=== PATIENT | male | born 1955 | race Caucasian/White ===

== ENCOUNTER 2016-11-22 10:20 | Inpatient (IN) | payer OTHER ==
[~2016-11-22] VITALS: Ht 172.7 cm; Wt 88.7 kg
[~2016-11-22 10:20] MED LIST: ASPI81TA21 PO; LPT/40 PO; LSNUNK PO
[2016-11-22] MEDS ORDERED: ONDANSETRON INJ 2 MG/ML 2 ML VIAL IV STA (11:06)
[2016-11-22 11:31] LABS: BASO % 0.2 %; BASO ABS # 0.02 K/uL (0-0.2); COMPLETE YES; EOS % 1.2 %; HEMATOCRIT 46.3 % (42-52); IG% 0.2 %; LYMPH % 16.9 %; LYMPH ABS # 1.57 K/uL (1.2-3.4); MEAN CELL VOLUME 92.2 fL (80-100); MEAN CORPUSCULAR HEMOGLOBIN 31.1 pg (25-34); MEAN CORPUSCULAR HGB CONC 33.7 g/dl (32-36); MEAN PLATELET VOLUME 11.1 fL (7.4-10.4); MONO % 7.3 %; NEUT % 74.2 %; PLATELET COUNT 211 K/uL (130-400); RED BLOOD COUNT 5.02 M/uL (4.7-6.1); WHITE BLOOD COUNT 9.31 K/uL (4.8-10.8)
[2016-11-22] MEDS ORDERED: MoRPHine SULFATE 4 MG/ML 1 ML CARP\\VIAL IV STA ×2 (11:46→13:14)
[2016-11-22] MEDS ORDERED: SODIUM CHLORIDE 0.9% 1000ML 1,000 ML IV STA (11:46)
[2016-11-22 11:54] LABS: ALKALINE PHOSPHATASE 69 U/L (45-117); ALT/SGPT 36 U/L (12-78); BLOOD UREA NITROGEN 15 mg/dl (7-18); BUN/CREATININE RATIO 14.9 (10-20); CALCIUM 8.8 mg/dl (8.5-10.1); CARBON DIOXIDE 25 mmol/L (21-32); CHLORIDE 110 mmol/L (98-107); GLUCOSE 100 mg/dl (70-99); SODIUM 140 mmol/L (136-145)
[2016-11-22] MEDS ORDERED: IBUP-1459 PO (12:12)
[2016-11-22 12:37] LABS: POTASSIUM 4.7 mmol/L (3.5-5.1)
--- NOTE | 2016-11-22 13:09 | DIAGNOSTIC IMAGING REPORT ---
ABDOMEN 2VIEW W/PA CHEST RTN CLINICAL HISTORY: abdominal cramping, history of bowel obstruction COMPARISON STUDY: 10/23/2013 FINDINGS: The heart is enlarged. There is no free intraperitoneal air. There is no focal pulmonary consolidation.] Supine views the abdomen reveal no abnormally dilated loops of large or small bowel. There are no transition zone to indicate bowel obstruction. IMPRESSION: No evidence of bowel obstruction. No evidence of free air. Electronically signed by: Sj Lopez M.D. 11/22/2016 1:07 PM Dictated Date/Time: 11/22/2016 1:06 PM
[2016-11-22] MEDS ORDERED: OPTIRAY 320 IV PRN (14:15)
--- NOTE | 2016-11-22 15:06 | DIAGNOSTIC IMAGING REPORT ---
ABDOMEN AND PELVIS CT WITH IV CONTRAST CT DOSE: 515.60 mGy.cm HISTORY: Generalized abdominal pain, nausea, hx bowel obstructions TECHNIQUE: Multiaxial CT images of the abdomen and pelvis were performed following the use of intravenous contrast. A dose lowering technique was utilized adhering to the principles of ALARA. COMPARISON STUDY: Abdomen and pelvis CT 10/22/2013. FINDINGS: Calcified granuloma within the base of the left lower lobe. Stable 3 mm nodule within the left lower lobe. 1.6 cm nodular opacity within the medial base of the right lower lobe. No pneumoperitoneum. No pneumatosis. No suspicious lytic or blastic osseous lesions. The heart is mildly enlarged. Trace perihepatic ascites. No hepatic or splenic masses. Stable 1 cm hypodense lesion within the splenic dome. This likely represents a small cyst. The adrenal glands and pancreas are unremarkable. Normal kidneys. No hydronephrosis. Normal gallbladder. No retroperitoneal or mesenteric lymphadenopathy. Tiny fat-containing umbilical hernia. Normal bladder. Small fat-containing right inguinal hernia. The colon is decompressed. The visualized appendix is normal. Multiple fluid-filled and mildly distended loops of mid to distal small bowel are again noted. These measure up to 3 cm in diameter. The transition point is seen within the right mid abdomen on image 178. This remains unchanged from the prior study. There is a focal 1 cm focus of enhancement within the small bowel wall at the transition point which is also unchanged. Therefore, this is consistent with a small bowel mass until further otherwise. IMPRESSION: 1. Small bowel obstruction with a transition point located at the mid ileum which is nearly identical to the prior examination. Again noted at the transition point is a 1 cm hyperenhancing focus within the small bowel. This is consistent with a small bowel mass until proven otherwise. Surgical consultation is recommended. 2. A 1.6 cm nodular opacity within the medial base of the right lower lobe. A 3-[address] follow-up is recommended to ensure stability/resolution and to the exclude the possibility of a low-grade primary bronchogenic malignancy. 3. Trace perihepatic ascites. Electronically signed by: Ab Alas M.D. 11/22/2016 3:04 PM Dictated Date/Time: 11/22/2016 2:46 PM
--- NOTE | 2016-11-22 15:34 | EMERGENCY ROOM VISIT NOTE ---
History First contact with patient: 11:28 Chief Complaint: ABDOMINAL PAIN Stated Complaint: STOMACH CRAMPS Nursing Triage Summary: triage note: pt reports generalized abd stomach cramping "it feels exactly the same when i had a blocked instetine." pt reports nausea. History of Present Illness The patient is a 61 year old male who presents to the Emergency Room with complaints of generalized abdominal cramping which started this morning. The patient states that when he woke up, he "did not feel well." Throughout the day , he has had worsening crampy abdominal pain as well as nausea. He has had no vomiting. He did have a small bowel movement this morning prior to the onset of these symptoms. He has not had a bowel movement since then. He has a history of small bowel obstructions and states this is very similar to previous. He states that the cause of these is unknown. He denies previous abdominal surgeries. He did have an NG tube after his first bowel obstruction, but states that his most recent bowel obstruction resolved with bowel rest. He denies fevers/chills, chest pain, shortness of breath or urinary symptoms. He has had nothing to eat or drink today. Review of Systems A complete 10 point review of systems was reviewed with the patient with pertinent positives and negatives as per history of present illness. All else were negative. Past Medical/Surgical History Medical Problems: (1) Benign hypertension Social History Smoking Status: Never Smoker Alcohol Use: occasionally Drug Use: none Marital Status: Housing Status: lives with family Occupation Status: employed Current/Historical Medications Scheduled Aspirin Enteric Coated (Ecotrin Or Generic), 81 MG PO QAM Atorvastatin (Lipitor), 80 MG PO QAM Lisinopril (Zestril Unknown Dose), 10 MG PO QAM Scheduled PRN Ibuprofen (Motrin), 400 MG PO Q6H PRN for Pain Physical Exam Vital Signs Date Time Temp Pulse Resp B/P (MAP) Pulse Ox O2 Delivery O2 Flow Rate FiO2 11/22/16 16:17 38 12 176/89 97 Room Air 11/22/16 15:11 49 18 159/88 98 Room Air 11/22/16 13:49 44 20 153/75 98 Room Air 11/22/16 13:39 39 11/22/16 12:23 40 18 162/94 98 Room Air 11/22/16 11:13 41 11/22/16 11:05 38 20 176/92 95 Room Air 11/22/16 10:33 36.4 45 18 189/81 99 Room Air Physical Exam VITALS: Vitals are noted on the nurse's note and reviewed by myself. Vital signs stable. GENERAL: This is a 61-year-old male, in no acute distress, nondiaphoretic, well- developed well-nourished. SKIN: Capillary refill less than 2 seconds. HEENT: Normocephalic. PERRLA. Mucous membranes moist. HEART: Regular rate and rhythm without murmurs gallops or rubs. LUNGS: Clear to auscultation bilaterally without wheezes, rales or rhonchi. ABDOMEN: Positive bowel sounds x 4. Soft, tenderness to palpation across the upper abdomen. No guarding or rebound tenderness. NEURO: Patient was alert and oriented to person place and time. Medical Decision & Procedures ER Provider Diagnostic Interpretation: ABDOMEN 2VIEW W/PA CHEST RTN FINDINGS: The heart is enlarged. There is no free intraperitoneal air. There is no focal pulmonary consolidation.] Supine views the abdomen reveal no abnormally dilated loops of large or small bowel. There are no transition zone to indicate bowel obstruction. IMPRESSION: No evidence of bowel obstruction. No evidence of free air. ABDOMEN AND PELVIS CT WITH IV CONTRAST FINDINGS: Calcified granuloma within the base of the left lower lobe. Stable 3 mm nodule within the left lower lobe. 1.6 cm nodular opacity within the medial base of the right lower lobe. No pneumoperitoneum. No pneumatosis. No suspicious lytic or blastic osseous lesions. The heart is mildly enlarged. Trace perihepatic ascites. No hepatic or splenic masses. Stable 1 cm hypodense lesion within the splenic dome. This likely represents a small cyst. The adrenal glands and pancreas are unremarkable. Normal kidneys. No hydronephrosis. Normal gallbladder. No retroperitoneal or mesenteric lymphadenopathy. Tiny fat-containing umbilical hernia. Normal bladder. Small fat-containing right inguinal hernia. The colon is decompressed. The visualized appendix is normal. Multiple fluid-filled and mildly distended loops of mid to distal small bowel are again noted. These measure up to 3 cm in diameter. The transition point is seen within the right mid abdomen on image 178. This remains unchanged from the prior study. There is a focal 1 cm focus of enhancement within the small bowel wall at the transition point which is also unchanged. Therefore, this is consistent with a small bowel mass until further otherwise. IMPRESSION: 1. Small bowel obstruction with a transition point located at the mid ileum which is nearly identical to the prior examination. Again noted at the transition point is a 1 cm hyperenhancing focus within the small bowel. This is consistent with a small bowel mass until proven otherwise. Surgical consultation is recommended. 2. A 1.6 cm nodular opacity within the medial base of the right lower lobe. A 3-[address] follow-up is recommended to ensure stability/resolution and to the exclude the possibility of a low-grade primary bronchogenic malignancy. 3. Trace perihepatic ascites. Laboratory Results 11/22/16 11:04 Red Blood Count 5.02, Mean Corpuscular Volume 92.2, Mean Corpuscular Hemoglobin 31.1, Mean Corpuscular Hemoglobin Concent 33.7, Mean Platelet Volume 11.1, Neutrophils (%) (Auto) 74.2, Lymphocytes (%) (Auto) 16.9, Monocytes (%) (Auto) 7.3, Eosinophils (%) (Auto) 1.2, Basophils (%) (Auto) 0.2, Neutrophils # (Auto) 6.91, Lymphocytes # (Auto) 1.57, Monocytes # (Auto) 0.68, Eosinophils # (Auto) 0.11, Basophils # (Auto) 0.02 11/22/16 11:04 11/22/16 12:05 Test 11/22/16 11:04 11/22/16 12:05 White Blood Count 9.31 K/uL (4.8-10.8) Red Blood Count 5.02 M/uL (4.7-6.1) Hemoglobin 15.6 g/dL (14.0-18.0) Hematocrit 46.3 % (42-52) Mean Corpuscular Volume 92.2 fL (80-100) Mean Corpuscular Hemoglobin 31.1 pg (25-34) Mean Corpuscular Hemoglobin Concent 33.7 g/dl (32-36) Platelet Count 211 K/uL (130-400) Mean Platelet Volume 11.1 fL (7.4-10.4) Neutrophils (%) (Auto) 74.2 % Lymphocytes (%) (Auto) 16.9 % Monocytes (%) (Auto) 7.3 % Eosinophils (%) (Auto) 1.2 % Basophils (%) (Auto) 0.2 % Neutrophils # (Auto) 6.91 K/uL (1.4-6.5) Lymphocytes # (Auto) 1.57 K/uL (1.2-3.4) Monocytes # (Auto) 0.68 K/uL (0.11-0.59) Eosinophils # (Auto) 0.11 K/uL (0-0.5) Basophils # (Auto) 0.02 K/uL (0-0.2) RDW Standard Deviation 44.6 fL (36.4-46.3) RDW Coefficient of Variation 13.1 % (11.5-14.5) Immature Granulocyte % (Auto) 0.2 % Immature Granulocyte # (Auto) 0.02 K/uL (0.00-0.02) Anion Gap 5.0 mmol/L (3-11) Est Creatinine Clear Calc Drug Dose 83.9 ml/min Estimated GFR () 93.7 Estimated GFR (Non- 80.9 BUN/Creatinine Ratio 14.9 (10-20) Calcium Level 8.8 mg/dl (8.5-10.1) Total Bilirubin 0.8 mg/dl (0.2-1) Alanine Aminotransferase (ALT/SGPT) 36 U/L (12-78) Alkaline Phosphatase 69 U/L (45-117) Total Protein 7.5 gm/dl (6.4-8.2) Albumin 3.7 gm/dl (3.4-5.0) Globulin 3.8 gm/dl (2.5-4.0) Albumin/Globulin Ratio 1.0 (0.9-2) Lipase 174 U/L (73-393) Aspartate Amino Transf (AST/SGOT) 28 U/L (15-37) Medications Administered Medications (Trade) Dose Ordered Sig/Holley Route Start Time Stop Time Status Last Admin Dose Admin Ondansetron HCl (Zofran Inj) 4 mg NOW STAT IV 11/22/16 11:06 11/22/16 11:07 DC 11/22/16 11:11 4 MG Morphine Sulfate (MoRPHine SULFATE INJ) 4 mg NOW STAT IV 11/22/16 11:46 11/22/16 11:47 DC 11/22/16 11:54 4 MG Sodium Chloride 1,000 ml @ 999 mls/hr Q1H1M STAT IV 11/22/16 11:46 11/22/16 12:46 DC 11/22/16 11:54 999 MLS/HR Morphine Sulfate (MoRPHine SULFATE INJ) 4 mg NOW STAT IV 11/22/16 13:14 11/22/16 13:15 DC 11/22/16 13:21 4 MG ECG Rate (beats per minute): 41 Rhythm: sinus bradycardia Findings: PAC, no acute ischemic change Change: no significant change ED Course The patient was evaluated as above. Labs were drawn and IV access was obtained. Patient was medicated with 4 milligrams morphine IV, 4 mg Zofran and 1 L normal saline solution. Abdominal series was performed and read by radiology as above. Patient was reevaluated and findings were discussed. He was complaining of some returning pain and was given an additional 4 mg morphine IV. At this time , decision was made to perform a CT scan due to patient's continued discomfort and concern for possible bowel obstruction. Case was discussed with the general surgeon, Dr. Poole. They agreed to evaluate the patient for admission. Medical Decision Differential diagnosis includes small bowel obstruction, gastroenteritis, diverticulitis, colitis, ileus, cholecystitis, among others. The patient is a 61-year-old male who presents today complaining of crampy abdominal pain consistent with his previous bowel obstructions. Labs were unremarkable. No leukocytosis. The patient is afebrile. Abdominal series was initially performed and was negative. However, due to concern that the patient' s symptoms feel identical to previous bowel obstructions, CT scan was ordered. As read by radiology and did show evidence of a small bowel obstruction. The patient appears to have a 1 cm small bowel mass and on review of previous records, it appears this was evident on his most recent bowel obstruction in 2013. It is unclear if the patient has had a full workup for this. Case was discussed with Dr. Poole, the on-call general surgeon, who agreed to evaluate the patient for admission. Of note, the patient's heart rate fluctuated from the high 30s to low 40s. Patient has a history of bradycardia and on review of records this seems to be his baseline. Medication Reconcilliation Current Medication List: was personally reviewed by [place] Blood Pressure Screening Patient's blood pressure: Elevated blood pressure (will be followed by hospitalist) Impression Primary Impression: Small bowel obstruction Departure Information Referrals Rico Cardoso III, M.D. (PCP) Patient Instructions [facility]
[2016-11-22] MEDS ORDERED: MoRPHine SULFATE 2 MG/ML CARP IV PRN ×2 (16:30)
[2016-11-22] MEDS ORDERED: ONDANSETRON INJ 2 MG/ML 2 ML VIAL IV PRN (16:30)
[2016-11-22] MEDS ORDERED: MoRPHine SULFATE 4 MG/ML 1 ML CARP\\VIAL IV PRN (16:30)
--- NOTE | 2016-11-22 17:32 | History and Physical ---
History & Physical Date & Time of Service: Nov 22, 2016 at 17:11 Chief Complaint: Stomach Cramps Primary Care Physician: Rico Cardoso III, M.D. History of Present Illness Source: patient Dean is a pleasant 61 year-old male who presented to the emergency department with complaint of abdominal cramping and nausea that began this morning at 7:30 am. States he has had two similar episodes in the past in which he had a small bowel obstruction in 2011 and 2013 in which he was admitted to the hospital. States he had an NGT placed for the first episode given the fact that he had profuse vomiting. The second admission he did not require an NGT and was there for two nights. States this abdominal cramping was the exact same as is other two episodes and immediately came to the emergency department. Has never had any abdominal surgeries before. Unsure of what is causing these obstructions. He states he had a colonoscopy when he was 50 years of age and then one after his second admission which were both normal. He also had a double contrast upper GI series and small bowel follow through in 2011 which showed mild esophageal dysmotility otherwise negative. Denies of any family history of colon cancer. Denies of any family history of ulcerative colitis. Believes his grandmother may have had Crohn's disease however she lived to age 89. Denies of any fever, chills, vomiting, vomiting blood, changes in bowel habits prior to today, diarrhea, constipation, blood in stools , or black/tarry stools. States he has regular bowel habits on a daily basis, formed and soft. States his last bowel movements was this morning at 5:30 am and then has not had any bowel function since. [place] very bloated this morning but this has since improved being in the emergency room. His labs showed no leukocytosis and CMP pretty unremarkable CT scan showed findings of Small bowel obstruction with a transition point located at the mid ileum which is nearly identical to the prior examination. Again noted at the transition point is a 1 cm hyper-enhancing focus within the small bowel. This is consistent with a small bowel mass until proven otherwise. Past Medical/Surgical History Past Medical history 1. Benign hypertension 2. Small bowel obstruction x 2 Past Surgical History 1. Knee arthroplasty (2009) Social History Smoking Status: Never Smoker Drug Use: none Marital Status: Housing status: lives with family Occupational Status: employed Immunizations History of Influenza Vaccine: No History of Tetanus Vaccine?: Yes Tetanus Immunization Date: Jul 05, 2009 History of Pneumococcal: No Pneumococcal Date: Feb 23, 2006 History of Hepatitis B Vaccine: No Multi-Drug Resistant Organisms History of MDRO: No Allergies Coded Allergies: Propranolol (Verified Allergy, Unknown, bradycardia, 11/22/16) Home Medications Scheduled Aspirin Enteric Coated (Ecotrin Or Generic), 81 MG PO QAM Atorvastatin (Lipitor), 80 MG PO QAM Lisinopril (Zestril Unknown Dose), 10 MG PO QAM Scheduled PRN Ibuprofen (Motrin), 400 MG PO Q6H PRN for Pain Review of Systems Constitutional: No fever, No chills, No sweats, No weight loss Abdomen: + pain, + nausea, No vomiting, No diarrhea, No constipation, No GI bleeding Physical Exam Vital Signs Date Time Temp Pulse Resp B/P (MAP) Pulse Ox O2 Delivery O2 Flow Rate FiO2 11/22/16 16:17 38 12 176/89 97 Room Air 11/22/16 15:11 49 18 159/88 98 Room Air 11/22/16 13:49 44 20 153/75 98 Room Air 11/22/16 13:39 39 11/22/16 12:23 40 18 162/94 98 Room Air 11/22/16 11:13 41 11/22/16 11:05 38 20 176/92 95 Room Air 11/22/16 10:33 36.4 45 18 189/81 99 Room Air General Appearance: WD/WN, no apparent distress Head: normocephalic, atraumatic Eyes: sclerae normal ENT: hearing grossly normal Neck: trachea midline Respiratory/Chest: lungs clear, normal breath sounds, no respiratory distress, no accessory muscle use Cardiovascular: regular rate, rhythm, no murmur Abdomen/GI: normal bowel sounds, non tender (no rebound, guarding, peritonitis , or rigidity on examination), soft, no organomegaly, no pulsatile mass, + distended (mildly) Back: normal inspection Extremities/Musculoskelatal: normal inspection Neurologic/Psych: alert, normal mood/affect, oriented x 3 Skin: normal color, warm/dry, no rash Diagnostics Laboratory Results Results Past 24 Hours Test 11/22/16 11:04 11/22/16 12:05 Range/Units White Blood Count 9.31 4.8-10.8 K/uL Red Blood Count 5.02 4.7-6.1 M/uL Hemoglobin 15.6 14.0-18.0 g/dL Hematocrit 46.3 42-52 % Mean Corpuscular Volume 92.2 80-100 fL Mean Corpuscular Hemoglobin 31.1 25-34 pg Mean Corpuscular Hemoglobin Concent 33.7 32-36 g/dl Platelet Count 211 130-400 K/uL Mean Platelet Volume 11.1 7.4-10.4 fL Neutrophils (%) (Auto) 74.2 % Lymphocytes (%) (Auto) 16.9 % Monocytes (%) (Auto) 7.3 % Eosinophils (%) (Auto) 1.2 % Basophils (%) (Auto) 0.2 % Neutrophils # (Auto) 6.91 1.4-6.5 K/uL Lymphocytes # (Auto) 1.57 1.2-3.4 K/uL Monocytes # (Auto) 0.68 0.11-0.59 K/uL Eosinophils # (Auto) 0.11 0-0.5 K/uL Basophils # (Auto) 0.02 0-0.2 K/uL RDW Standard Deviation 44.6 36.4-46.3 fL RDW Coefficient of Variation 13.1 11.5-14.5 % Immature Granulocyte % (Auto) 0.2 % Immature Granulocyte # (Auto) 0.02 0.00-0.02 K/uL Sodium Level 140 136-145 mmol/L Potassium Level 4.7 3.5-5.1 mmol/L Chloride Level 110 98-107 mmol/L Carbon Dioxide Level 25 21-32 mmol/L Anion Gap 5.0 3-11 mmol/L Blood Urea Nitrogen 15 7-18 mg/dl Creatinine 1.00 0.60-1.40 mg/dl Est Creatinine Clear Calc Drug Dose 83.9 ml/min Estimated GFR () 93.7 Estimated GFR (Non- 80.9 BUN/Creatinine Ratio 14.9 10-20 Random Glucose 100 70-99 mg/dl Calcium Level 8.8 8.5-10.1 mg/dl Total Bilirubin 0.8 0.2-1 mg/dl Aspartate Amino Transf (AST/SGOT) 28 15-37 U/L Alanine Aminotransferase (ALT/SGPT) 36 12-78 U/L Alkaline Phosphatase 69 45-117 U/L Total Protein 7.5 6.4-8.2 gm/dl Albumin 3.7 3.4-5.0 gm/dl Globulin 3.8 2.5-4.0 gm/dl Albumin/Globulin Ratio 1.0 0.9-2 Lipase 174 73-393 U/L Diagnostic Radiology ABDOMEN AND PELVIS CT WITH IV CONTRAST CT DOSE: 515.60 mGy.cm HISTORY: Generalized abdominal pain, nausea, hx bowel obstructions TECHNIQUE: Multiaxial CT images of the abdomen and pelvis were performed following the use of intravenous contrast. A dose lowering technique was utilized adhering to the principles of ALARA. COMPARISON STUDY: Abdomen and pelvis CT 10/22/2013. FINDINGS: Calcified granuloma within the base of the left lower lobe. Stable 3 mm nodule within the left lower lobe. 1.6 cm nodular opacity within the medial base of the right lower lobe. No pneumoperitoneum. No pneumatosis. No suspicious lytic or blastic osseous lesions. The heart is mildly enlarged. Trace perihepatic ascites. No hepatic or splenic masses. Stable 1 cm hypodense lesion within the splenic dome. This likely represents a small cyst. The adrenal glands and pancreas are unremarkable. Normal kidneys. No hydronephrosis. Normal gallbladder. No retroperitoneal or mesenteric lymphadenopathy. Tiny fat-containing umbilical hernia. Normal bladder. Small fat-containing right inguinal hernia. The colon is decompressed. The visualized appendix is normal. Multiple fluid-filled and mildly distended loops of mid to distal small bowel are again noted. These measure up to 3 cm in diameter. The transition point is seen within the right mid abdomen on image 178. This remains unchanged from the prior study. There is a focal 1 cm focus of enhancement within the small bowel wall at the transition point which is also unchanged. Therefore, this is consistent with a small bowel mass until further otherwise. IMPRESSION: 1. Small bowel obstruction with a transition point located at the mid ileum which is nearly identical to the prior examination. Again noted at the transition point is a 1 cm hyperenhancing focus within the small bowel. This is consistent with a small bowel mass until proven otherwise. Surgical consultation is recommended. 2. A 1.6 cm nodular opacity within the medial base of the right lower lobe. A 3-[address] follow-up is recommended to ensure stability/resolution and to the exclude the possibility of a low-grade primary bronchogenic malignancy. 3. Trace perihepatic ascites. Impression Assessment and Plan Partial SBO -etiology questionable small bowel mass? No history of abdominal surgeries - no leukocytosis -afebrile - no vomiting - abdomen slightly distended, soft, no guarding, rebound, or peritonitis - CT scan showing small bowel dilatation consistent with partial small bowel obstruction at distal ileum with transition point and a 1 cm mass in the wall of the small bowel most likely etiology, (no change since previous CT scan in 2013) Plan: No acute surgical intervention required at this time. Will plan to admit patient for conservative management with IV fluids, IV pain medication, IV zofran, and kept NPO. Does not need NGT at this time however if he develops vomiting may need placement. May require diagnostic laparoscopy to further evaluate small bowel mass but will start with conservative management at this time. Will continue to follow Dr. Poole has seen and examined patient, agrees with above. VTE Prophylaxis VTE Risk Assessment Done? Y/N: Yes Risk Level: Low Note I interviewed and examined this patient and reviewed his labs and radiology studies and I agree with the above note. He has signs and symptoms of bowel obstruction. There is also evident on CAT scan. The 1 cm hyperechoic area associated with the transition point which is completely unchanged from 3 years ago as an etiology is unclear. This will need to be investigated at some point. He did have an upper GI small bowel follow-through but that was 5 years ago. It was normal. He does not use an NG tube at the present time. We will continue to manage him expectantly. We will follow him with serial exams.
[2016-11-22 17:46] VITALS: O2SAT 98
[2016-11-22] MEDS: SODIUM CHLORIDE 0.9% 1000ML 1,000 ML IV SCH (19:11)
[2016-11-22 21:55] VITALS: Ht 172.7 cm; Wt 88.7 kg
[2016-11-22 22:50] VITALS: BP 138/64; PULSE 40; TEMP 36.8; O2SAT 95
[2016-11-23] MEDS: SODIUM CHLORIDE 0.9% 1000ML 1,000 ML IV SCH ×3 (04:21→23:35)
[2016-11-23 04:34] LABS: URINE APPEARANCE CLEAR (CLEAR); URINE BILIRUBIN NEG (NEG); URINE COLOR YELLOW; URINE NITRITE NEG (NEG); URINE PH 5.5 (4.5-7.5); URINE SPECIFIC GRAVITY > 1.045 (1.000-1.030); UROBILINOGEN NEG (NEG); ZZUR CULT IF INDIC CLEAN CATCH NO
[2016-11-23 04:42] LABS: MANUAL MICROSCOPIC REQUIRED? NO; REVIEW REQ? NO
[2016-11-23 07:35] VITALS: BP 122/68; PULSE 62; TEMP 36.5; O2SAT 96
[2016-11-23 08:05] LABS: BASO % 0.2 %; BASO ABS # 0.01 K/uL (0-0.2); COMPLETE YES; EOS % 2.6 %; HEMATOCRIT 41.8 % (42-52); IG% 0.2 %; LYMPH % 23.5 %; LYMPH ABS # 1.27 K/uL (1.2-3.4); MEAN CELL VOLUME 92.7 fL (80-100); MEAN CORPUSCULAR HGB CONC 33.5 g/dl (32-36); MONO % 9.1 %; NEUT % 64.4 %; PLATELET COUNT 185 K/uL (130-400); RED BLOOD COUNT 4.51 M/uL (4.7-6.1); WHITE BLOOD COUNT 5.41 K/uL (4.8-10.8)
[2016-11-23 08:33] LABS: CALCIUM 8.2 mg/dl (8.5-10.1); CARBON DIOXIDE 24 mmol/L (21-32); CHLORIDE 108 mmol/L (98-107); GLUCOSE 93 mg/dl (70-99); SODIUM 138 mmol/L (136-145)
[2016-11-23 08:38] LABS: BLOOD UREA NITROGEN 10 mg/dl (7-18)
--- NOTE | 2016-11-23 09:25 | Surgery Progress Note ---
Surgery Progress Note Date of Service Nov 23, 2016. Subjective Post OP Day: HD # 1 + feeling well (abdominal pain much improved, less cramping has not occurred since being in ER), + flatus, + pain controlled, No bowel movement, No nausea, No vomiting Objective Vital Signs: Date Time Temp Pulse Resp B/P (MAP) Pulse Ox O2 Delivery O2 Flow Rate FiO2 11/23/16 07:35 36.5 62 14 122/68 (86) 96 Room Air 11/22/16 23:15 Room Air 11/22/16 22:50 36.8 40 16 138/64 (88) 95 Room Air 11/22/16 21:55 Room Air 11/22/16 17:46 37 12 158/86 98 11/22/16 16:17 38 12 176/89 97 Room Air 11/22/16 15:11 49 18 159/88 98 Room Air 11/22/16 13:49 44 20 153/75 98 Room Air 11/22/16 13:39 39 11/22/16 12:23 40 18 162/94 98 Room Air 11/22/16 11:13 41 11/22/16 11:05 38 20 176/92 95 Room Air 11/22/16 10:33 36.4 45 18 189/81 99 Room Air General Appearance: WD/WN, no apparent distress Head: normocephalic, atraumatic Neck: trachea midline Respiratory/Chest: no respiratory distress, no accessory muscle use Abdomen: non distended, soft, + tenderness (minimal tenderness on deep palpation, improved compared to yesterday exam) Laboratory Results: Results Past 24 Hours Test 11/22/16 11:04 11/22/16 12:05 11/23/16 04:05 11/23/16 07:17 Range/Units White Blood Count 9.31 5.41 4.8-10.8 K/uL Red Blood Count 5.02 4.51 4.7-6.1 M/uL Hemoglobin 15.6 14.0 14.0-18.0 g/dL Hematocrit 46.3 41.8 42-52 % Mean Corpuscular Volume 92.2 92.7 80-100 fL Mean Corpuscular Hemoglobin 31.1 31.0 25-34 pg Mean Corpuscular Hemoglobin Concent 33.7 33.5 32-36 g/dl Platelet Count 211 185 130-400 K/uL Mean Platelet Volume 11.1 11.0 7.4-10.4 fL Neutrophils (%) (Auto) 74.2 64.4 % Lymphocytes (%) (Auto) 16.9 23.5 % Monocytes (%) (Auto) 7.3 9.1 % Eosinophils (%) (Auto) 1.2 2.6 % Basophils (%) (Auto) 0.2 0.2 % Neutrophils # (Auto) 6.91 3.49 1.4-6.5 K/uL Lymphocytes # (Auto) 1.57 1.27 1.2-3.4 K/uL Monocytes # (Auto) 0.68 0.49 0.11-0.59 K/uL Eosinophils # (Auto) 0.11 0.14 0-0.5 K/uL Basophils # (Auto) 0.02 0.01 0-0.2 K/uL RDW Standard Deviation 44.6 44.2 36.4-46.3 fL RDW Coefficient of Variation 13.1 13.0 11.5-14.5 % Immature Granulocyte % (Auto) 0.2 0.2 % Immature Granulocyte # (Auto) 0.02 0.01 0.00-0.02 K/uL Sodium Level 140 138 136-145 mmol/L Potassium Level 4.7 3.5-5.1 mmol/L Chloride Level 110 108 98-107 mmol/L Carbon Dioxide Level 25 24 21-32 mmol/L Anion Gap 5.0 6.0 3-11 mmol/L Blood Urea Nitrogen 15 10 7-18 mg/dl Creatinine 1.00 0.80 0.60-1.40 mg/dl Est Creatinine Clear Calc Drug Dose 83.9 104.9 ml/min Estimated GFR () 93.7 111.7 Estimated GFR (Non- 80.9 96.4 BUN/Creatinine Ratio 14.9 13.0 10-20 Random Glucose 100 93 70-99 mg/dl Calcium Level 8.8 8.2 8.5-10.1 mg/dl Total Bilirubin 0.8 0.2-1 mg/dl Aspartate Amino Transf (AST/SGOT) 28 15-37 U/L Alanine Aminotransferase (ALT/SGPT) 36 12-78 U/L Alkaline Phosphatase 69 45-117 U/L Total Protein 7.5 6.4-8.2 gm/dl Albumin 3.7 3.4-5.0 gm/dl Globulin 3.8 2.5-4.0 gm/dl Albumin/Globulin Ratio 1.0 0.9-2 Lipase 174 73-393 U/L Urine Color YELLOW Urine Appearance CLEAR CLEAR Urine pH 5.5 4.5-7.5 Urine Specific [place] > 1.045 1.000-1.030 Urine Protein NEG NEG Urine Glucose (UA) NEG NEG Urine Ketones TRACE NEG Urine Occult Blood NEG NEG Urine Nitrite NEG NEG Urine Bilirubin NEG NEG Urine Urobilinogen NEG NEG Urine Leukocyte Esterase NEG NEG Test 11/23/16 09:12 Range/Units Assessment & Plan Partial Small Bowel Obstruction secondary to possible small bowel mass? -vitals stable - +flatus - abdominal pain improving, nondistended and soft Plan: Advance diet to clear liquids, if does well with liquids possibly solid food tomorrow and will start home medications and oral pain medications as needed May ambulate Continue IV pain medications as needed Continue IV Zofran as needed Continue IV fluids Dr. Poole has seen and examined patient, agrees with above
[2016-11-23 11:10] VITALS: BP 119/77; TEMP 36.4; O2SAT 97
[2016-11-23 11:47] VITALS: PULSE 39
[2016-11-23 14:54] VITALS: BP 108/70; PULSE 40; TEMP 36.8; O2SAT 98
[2016-11-23 22:50] VITALS: BP 142/68; PULSE 45; TEMP 36.5; O2SAT 98
[2016-11-24 06:55] VITALS: BP 190/87; PULSE 41; TEMP 36.4; O2SAT 98
[2016-11-24 07:11] VITALS: BP 171/84; PULSE 44
[2016-11-24 07:31] LABS: HEMATOCRIT 41.3 % (42-52); MEAN CELL VOLUME 91.6 fL (80-100); MEAN CORPUSCULAR HEMOGLOBIN 31.3 pg (25-34); MEAN CORPUSCULAR HGB CONC 34.1 g/dl (32-36); MEAN PLATELET VOLUME 10.8 fL (7.4-10.4); PLATELET COUNT 175 K/uL (130-400); RED BLOOD COUNT 4.51 M/uL (4.7-6.1); WHITE BLOOD COUNT 5.77 K/uL (4.8-10.8)
[2016-11-24] MEDS ORDERED: IBUPROFEN 200 MG TAB PO PRN (08:00)
[2016-11-24 08:05] LABS: BUN/CREATININE RATIO 8.7 (10-20); CALCIUM 8.3 mg/dl (8.5-10.1); CREATININE 0.9 mg/dl (0.60-1.40); POTASSIUM 3.8 mmol/L (3.5-5.1)
[2016-11-24] MEDS ORDERED: ATORVASTATIN 40 MG TAB PO SCH (09:00)
[2016-11-24] MEDS ORDERED: ASPIRIN 81 MG ECTAB PO SCH (09:00)
[2016-11-24] MEDS ORDERED: LISINOPRIL 10 MG TAB PO SCH (09:00)
[2016-11-24] MEDS: SODIUM CHLORIDE 0.9% 1000ML 1,000 ML IV SCH (09:27)
[2016-11-24 12:19] VITALS: BP 155/78; PULSE 38
--- NOTE | 2016-11-24 13:38 | Discharge Instructions ---
Discharge Instructions Date of Service Nov 24, 2016. Admission Reason for Admission: Partial Small Bowel Obstruction Discharge Discharge Diagnosis / Problem: Same Discharge Goals Goal(s): Decrease discomfort Activity Recommendations Activity Limitations: resume your previous activity Lifting Limitations: none Exercise/Sports Limitations: rest today May Resume Sexual Activity: when tolerated Shower/Bathe: no limitations Driving or Machine Use: resume 1 day after discharge . Instructions / Follow-Up Instructions / Follow-Up Advance diet as tolerated Follow-up with Dr. Poole in 1-2 weeks, please call office at [phone] to make an appointment Current Hospital Diet Patient's current hospital diet: Low Fiber Diet Discharge Diet Recommended Diet: Low Fiber Diet Pending Studies Studies pending at discharge: no Medical Emergencies . Who to Call and When: Medical Emergencies: If at any time you feel your situation is an emergency, please call 911 immediately. . Non-Emergent Contact Non-Emergency issues call your: Primary Care Provider, Surgeon Call Non-Emergent contact if: you have a fever, temperature is above 101.5, your pain is not controlled, your pain is worsening, your pain is unusual for you . "Provider Documentation" section prepared by Mary Jane Martins. . VTE Core Measure Inpt VTE Proph given/why not?: SCD's
[2016-11-24 13:41] VITALS: BP 155/78; PULSE 38; TEMP 36.4; O2SAT 98
--- NOTE | 2016-11-24 16:43 | Surgery Progress Note ---
Surgery Progress Note Date of Service Nov 24, 2016. Subjective Post OP Day: HD # 2 + feeling well, + bowel movement, + flatus, + pain controlled, + diet, No complaints, No nausea, No vomiting LATE ENTRY FOR 11/24/2016 AT 7:30 AM Patient feeling well, had bowel movement yesterday and passing gas Tolerated clear liquids ready to go home Objective Vital Signs: Date Time Temp Pulse Resp B/P (MAP) Pulse Ox O2 Delivery O2 Flow Rate FiO2 11/24/16 13:41 36.4 38 17 98 Room Air 11/24/16 12:19 38 155/78 (103) 11/24/16 07:11 44 171/84 (113) 11/24/16 07:06 Room Air 11/24/16 06:55 36.4 41 17 190/87 (121) 98 11/23/16 22:50 36.5 45 16 142/68 (92) 98 Room Air 11/23/16 19:55 Room Air General Appearance: WD/WN, no apparent distress Head: normocephalic, atraumatic Neck: trachea midline Respiratory/Chest: no respiratory distress, no accessory muscle use Abdomen: normal bowel sounds, non tender, non distended, soft Laboratory Results: Results Past 24 Hours Test 11/24/16 07:11 Range/Units White Blood Count 5.77 4.8-10.8 K/uL Red Blood Count 4.51 4.7-6.1 M/uL Hemoglobin 14.1 14.0-18.0 g/dL Hematocrit 41.3 42-52 % Mean Corpuscular Volume 91.6 80-100 fL Mean Corpuscular Hemoglobin 31.3 25-34 pg Mean Corpuscular Hemoglobin Concent 34.1 32-36 g/dl RDW Standard Deviation 43.4 36.4-46.3 fL RDW Coefficient of Variation 12.9 11.5-14.5 % Platelet Count 175 130-400 K/uL Mean Platelet Volume 10.8 7.4-10.4 fL Sodium Level 142 136-145 mmol/L Potassium Level 3.8 3.5-5.1 mmol/L Chloride Level 110 98-107 mmol/L Carbon Dioxide Level 26 21-32 mmol/L Anion Gap 6.0 3-11 mmol/L Blood Urea Nitrogen 8 7-18 mg/dl Creatinine 0.90 0.60-1.40 mg/dl Est Creatinine Clear Calc Drug Dose 93.3 ml/min Estimated GFR () 106.5 Estimated GFR (Non- 91.9 BUN/Creatinine Ratio 8.7 10-20 Random Glucose 97 70-99 mg/dl Calcium Level 8.3 8.5-10.1 mg/dl Assessment & Plan Partial Small Bowel Obstruction secondary to possible small bowel mass?- Resolved -vitals stable - +flatus and + BM - abdominal pain resolved, soft , nondistended, nontender on exam Plan: Advance diet low residue diet for lunch if does well will d/c home this afternoon start PO home meds Continue IV fluids in the meantime Dr. Poole has seen and examined patient, agrees with above
--- NOTE | 2016-11-27 11:51 | Discharge Summary ---
Discharge Summary Dates Admission Date / Time: Nov 22, 2016 at 16:27 Discharge Date: Nov 24, 2016 Dispostion / Condition Discharge Disposition: Home Condition at Discharge: Good Principal Diagnosis (1) Abdominal pain (2) Partial small bowel obstruction Problem List (1) Hyperlipidemia (2) Benign hypertension (3) Partial small bowel obstruction Consultations / Procedures Consultations: None Procedures: None Pending Studies / Follow-Up None Medication Reconciliation Continued Medications: Aspirin Enteric Coated (Ecotrin Or Generic) 81 Mg Tab 81 MG PO QAM, 0 Refills Atorvastatin (Lipitor) 40 Mg Tab 80 MG PO QAM Ibuprofen (Motrin) 400 Mg Tab 400 MG PO Q6H PRN for Pain Lisinopril (Zestril Unknown Dose) Tab 10 MG PO QAM Admission HPI Per the Admitting provider: Dean is a pleasant 61 year-old male who presented to the emergency department with complaint of abdominal cramping and nausea that began this morning at 7:30 am. States he has had two similar episodes in the past in which he had a small bowel obstruction in 2011 and 2013 in which he was admitted to the hospital. States he had an NGT placed for the first episode given the fact that he had profuse vomiting. The second admission he did not require an NGT and was there for two nights. States this abdominal cramping was the exact same as is other two episodes and immediately came to the emergency department. Has never had any abdominal surgeries before. Unsure of what is causing these obstructions. He states he had a colonoscopy when he was 50 years of age and then one after his second admission which were both normal. He also had a double contrast upper GI series and small bowel follow through in 2011 which showed mild esophageal dysmotility otherwise negative. Denies of any family history of colon cancer. Denies of any family history of ulcerative colitis. Believes his grandmother may have had Crohn's disease however she lived to age 89. Denies of any fever, chills, vomiting, vomiting blood, changes in bowel habits prior to today, diarrhea, constipation, blood in stools , or black/tarry stools. States he has regular bowel habits on a daily basis, formed and soft. States his last bowel movements was this morning at 5:30 am and then has not had any bowel function since. [place] very bloated this morning but this has since improved being in the emergency room. His labs showed no leukocytosis and CMP pretty unremarkable CT scan showed findings of Small bowel obstruction with a transition point located at the mid ileum which is nearly identical to the prior examination. Again noted at the transition point is a 1 cm hyper-enhancing focus within the small bowel. This is consistent with a small bowel mass until proven otherwise. Admission Exam Per the Admitting provider: General Appearance: WD/WN, no apparent distress Head: normocephalic, atraumatic Eyes: sclerae normal ENT: hearing grossly normal Neck: trachea midline Respiratory/Chest: lungs clear, normal breath sounds, no respiratory distress, no accessory muscle use Cardiovascular: regular rate, rhythm, no murmur Abdomen/GI: normal bowel sounds, non tender (no rebound, guarding, peritonitis, or rigidity on examination), soft, no organomegaly, no pulsatile mass, + distended (mildly) Back: normal inspection Extremities/Musculoskelatal: normal inspection Neurologic/Psych: alert, normal mood/affect, oriented x 3 Skin: normal color, warm/dry, no rash Hospital Course (1) Partial small bowel obstruction Patient was admitted for observation to the medical/surgical floor and was started on Conservative management for Partial small bowel obstruction including IV fluids, IV pain medication, IV zofran, and kept NPO. Patient has history of SBO previously x 2 and was found to have a small bowel mass on his last CT scan in 2013. No change on this recent CT scan compared to prior. Hospital day # 1 patient was feeling much better, abdominal pain and cramping resolved and was passing some flatus. Was hungry and wanted to have something to eat. Diet was advanced to clear liquids. Hospital day # 2 , patient had a large liquid bowel movement along with flatus. Abdominal pain was resolved. NO nausea or vomiting. Diet was advanced to low residue diet and home medications were continued. Later in the day , he tolerated lunch well with no issues. Was discharged home on Hospital day # 2 with intent for outpatient follow-up and further work-up of small bowel mass. Overall hospital course was uneventful. Discharge Instructions as given to patient Copies To Primary Care Provider: Rico Cardoso III, M.D..
== END 2016-11-24 13:54 | disposition home or self-care (01) | DRG 390 ==
LOC: C.EDB 10:21 → C.MSN 16:27 → ENRESERV 17:19
PROVIDERS: ADMIT Surgery; ATTEND Surgery
DX: K56.60 Unspecified intestinal obstruction (principal); I10 Essential (primary) hypertension; E78.5 Hyperlipidemia, unspecified; Z79.82 Long term (current) use of aspirin

== ENCOUNTER 2017-01-08 04:58 | Day surgery (SDC) | payer OTHER ==
--- NOTE | 2016-12-25 15:46 | PAT Medication Instructions ---
Service Date Dec 25, 2016. Current Home Medication List Aspirin Enteric Coated (Ecotrin Or Generic), 81 MG PO QAM Atorvastatin (Lipitor), 80 MG PO QAM Lisinopril (Zestril), 10 MG PO QAM Medication Instructions For Your Scheduled Surgery - Check with surgeon for instructions: Aspirin Enteric Coated (Ecotrin Or Generic), 81 MG PO QAM - Hold the following medications the morning of surgery: Lisinopril (Zestril), 10 MG PO QAM - Take the following medications the morning of surgery with a sip of water: Atorvastatin (Lipitor), 80 MG PO QAM If you have any questions please call us at [phone] or [phone] or [phone]
[~2017-01-08] VITALS: Ht 172.7 cm; Wt 90.7 kg
[~2017-01-08 04:58] MED LIST changes: +LISI-461 PO; -LSNUNK PO
[2017-01-08 05:35] VITALS: BP 175/91; PULSE 45; TEMP 36.5; O2SAT 97; Ht 172.7 cm; Wt 90.7 kg
[2017-01-08] MEDS ORDERED: CEFOXITIN IV 2,000 MG in DEXTROSE 5% 50ML 50 ML IV SCH (06:00)
[2017-01-08] MEDS ORDERED: LACTATED RINGER'S 1000ML 1,000 ML IV SCH (06:00)
[2017-01-08] MEDS ORDERED: FENTANYL CITRATE INJ 50 MCG/1 ML 2 ML VIAL ONE ×2 (06:49→08:15)
[2017-01-08] MEDS ORDERED: MIDAZOLAM HCL 1 MG/ML 2ML VIAL ONE (06:49)
--- NOTE | 2017-01-08 07:03 | History & Physical Bridge Note ---
H&P Re-Evaluation Bridge Note: I have examined the patient, reviewed the History & Physical and in the interval since the performance of the History & Physical I have noted the following changes of clinical significance: No changes noted
[2017-01-08] MEDS ORDERED: BUPIVACAINE 0.5 % 5 MG/1 ML MPF 30ML VIAL ONE (07:10)
[2017-01-08] MEDS ORDERED: KETOROLAC TROMETHAMINE 30 MG/ML VIAL IV. PRN (07:45)
[2017-01-08] MEDS ORDERED: ONDANSETRON INJ 2 MG/ML 2 ML VIAL IV PRN ×2 (07:45→09:15)
[2017-01-08] MEDS ORDERED: ATROPINE SULFATE 0.1 MG/ML 5ML SYR IV PRN (07:45)
[2017-01-08] MEDS ORDERED: ONDANSETRON INJ 2 MG/ML 2 ML VIAL ONE (07:50)
[2017-01-08] MEDS ORDERED: LIDOCAINE HCL 2% 2 ML VIAL (20MG/ML) ONE (07:50)
[2017-01-08] MEDS ORDERED: DEXAMETHASONE SOD INJ 4 MG/ML VIAL ONE (07:50)
[2017-01-08] MEDS ORDERED: GLYCOPYRROLATE INJ 0.2 MG/ML VIAL ONE (07:50)
[2017-01-08] MEDS ORDERED: ROCURONIUM BROMIDE 10 MG/ML 5 ML VIAL IV ONE (07:50)
[2017-01-08] MEDS ORDERED: NEOSTIGMINE METHYLSULFATE 5 MG/5 ML SYR ONE (07:50)
[2017-01-08] MEDS ORDERED: PROPOFOL IV EMULSION 10 MG/ML 20 ML VIAL IV ONE (07:50)
[2017-01-08] MEDS ORDERED: EpHEDrine SULFATE 50MG/5ML SYR ONE (08:38)
[2017-01-08] MEDS ORDERED: EpHEDrine SULFATE INJ 50 MG/ML AMP ONE (08:38)
--- NOTE | 2017-01-08 09:05 | Discharge Instructions ---
Discharge Instructions Date of Service Jan 08, 2017. Admission Reason for Admission: Small Bowel Mass Discharge Discharge Diagnosis / Problem: s/p exploratory laparoscopy Discharge Goals Goal(s): Decrease discomfort, Improve function Activity Recommendations Activity Limitations: as noted below No heavy lifting over 10 pounds for 2 weeks No strenuous activity until cleared by surgeon No submerging incisions underwater for 2 weeks (no bathing, swimming, or hot tubs) No driving while taking narcotic pain medication or until you are pain free whichever comes last . Instructions / Follow-Up Instructions / Follow-Up You may shower in 24 hours, leave steri strips on incisions for 7 days and then remove. They may fall off on their own that is okay You do not need to keep a dressing on incisions unless they are draining Walking and light activity is encouraged to prevent blood clots from forming Follow up with Dr. Poole in 2 weeks, please call office at [phone] if you do not already have an appointment Current Hospital Diet Patient's current hospital diet: Discharge Diet Recommended Diet: Regular Diet Procedures Procedures Performed: Exploratory Laparoscopy Pending Studies Studies pending at discharge: no Medical Emergencies . Who to Call and When: Medical Emergencies: If at any time you feel your situation is an emergency, please call 911 immediately. . Non-Emergent Contact Non-Emergency issues call your: Primary Care Provider, Surgeon Call Non-Emergent contact if: you have a fever, temperature is above 101.5, your pain is not controlled, your pain is worsening, your pain is unusual for you, wound has increased drainage, wound has increased redness, wound has increased pain . "Provider Documentation" section prepared by Mary Jane Martins. . VTE Core Measure Inpt VTE Proph given/why not?: SCD's [place] Drug Monitoring Program Search Results: patient reviewed within database, no issues identified
[2017-01-08] MEDS ORDERED: OXYC-57 PO (09:07)
[2017-01-08] MEDS ORDERED: OXYCODONE/ACETAMINOPHEN 5-325 TAB PO PRN ×2 (09:15)
[2017-01-08] MEDS ORDERED: MoRPHine SULFATE 4 MG/ML 1 ML CARP\\VIAL IV PRN (09:15)
[2017-01-08] MEDS ORDERED: MoRPHine SULFATE 2 MG/ML CARP IV PRN ×2 (09:15)
[2017-01-08] MEDS: HYDROmorphone INJ 2 MG/ML SYR/VIAL IV PRN ×5 (09:19→09:40)
[2017-01-08 10:05] VITALS: BP 194/97; PULSE 40; TEMP 36.5; O2SAT 100
--- NOTE | 2017-01-08 10:16 | Anesthesiology Progress Note ---
Anesthesia Post Op Note Date & Time Jan 08, 2017 at 10:16 Vital Signs Pain Intensity: 3 Vital Signs Past 12 Hours Date Time Temp Pulse Resp B/P (MAP) Pulse Ox O2 Delivery O2 Flow Rate FiO2 01/08/17 10:00 40 13 155/82 99 Room Air 01/08/17 09:50 36.6 43 14 148/90 98 Room Air 01/08/17 09:40 37 12 147/84 98 Room Air 01/08/17 09:30 39 10 164/92 100 Room Air 01/08/17 09:20 39 11 148/87 100 Oxymask 10 01/08/17 09:10 45 12 165/77 100 Oxymask 10 01/08/17 09:00 36.8 52 17 177/82 100 Oxymask 10 01/08/17 05:35 36.5 45 18 175/91 97 Room Air Notes Mental Status: alert / awake / arousable, participated in evaluation Pt Amnestic to Procedure: Yes Nausea / Vomiting: adequately controlled Pain: adequately controlled Airway Patency, RR, SpO2: stable & adequate BP & HR: stable & adequate Hydration State: stable & adequate Anesthetic Complications: no major complications apparent
[2017-01-08 10:35] VITALS: BP 196/89; PULSE 39; O2SAT 99
[2017-01-08 11:05] VITALS: BP 179/92; PULSE 42; TEMP 36.3; O2SAT 97
[2017-01-08 11:35] VITALS: BP 194/87; PULSE 50; TEMP 36.3; O2SAT 97
--- NOTE | 2017-01-08 17:15 | OPERATIVE REPORT ---
DATE OF OPERATION: 01/08/2017 PREOPERATIVE DIAGNOSIS: Abnormal CT scan with 1 cm hypervascular structure. POSTOPERATIVE DIAGNOSIS: No abnormality seen. PROCEDURE: Diagnostic laparoscopy. SURGEON: Carlos Poole MD AIRCRAFT NAVIGATOR: Mary Jane Felipe PA-C FINDINGS OF PROCEDURE: The patient had had 2 bowel obstructions; one 3 years ago and one within the last month and a half. Both of those CAT scans at what appeared to be the transition point radiologically, there was a 1 cm area that was described as hypervascular. It appeared to be in the mesentery and next to the bowel wall. The 1 cm area had not changed in size from the CAT scan 3 years ago. Because it was enhancing on CAT scan, I had a discussion with the patient to explore to see if we could identify it and resect it. The small bowel was run from the ligament of Treitz down to the ileocecal valve. That was essentially done twice. Both sides of the mesentery at each level inspected was looked at and no abnormality could be identified. There was no evidence of bowel obstruction. There was no intussusception. There was no transition point as a transition from the proximal dilated bowel to the distal decompressed bowel. The anterior wall of the stomach appeared normal. The liver surface appeared normal as well. DESCRIPTION OF PROCEDURE: The patient was given a general anesthetic and the area was prepped and draped in usual sterile fashion. Transverse incision was made below the umbilicus, carried down through the subcutaneous tissue to the fascia which was grasped with 2 Brittany clamps and incised between. The peritoneum was identified, incised, and the introducer was placed bluntly. The abdomen was then insufflated to a pressure of 15 mmHg with carbon dioxide. The left-sided 5 mm introducers were placed under direct vision. The omentum was retracted superiorly in the upper abdomen and the ligament of Treitz was identified at the base of the transverse colon mesentery. The bowel was then grasped there and using a [id number] technique, the entire length of the small bowel was visualized. Each side of the mesentery was visualized. This inspection was performed down to where the ligament of Treitz could be identified. I then worked backwards from there and again no abnormality could be identified. I did not feel open inspection would be warranted at that time. The gas was allowed to escape. The introducers were removed and the fascia of the umbilical introducer site was closed with interrupted 0 Vicryl. Skin of all the incisions was closed with 4-0 Monocryl in a running subcuticular fashion and the skin was anesthetized with 0.5% Marcaine. The skin was cleansed, dried, benzoin placed, Steri-Strips applied. Estimated blood loss was 3 mL. Sponge, needle and instrument counts were correct prior to closure. The patient tolerated the surgical procedure without complication and was transferred to recovery. I attest to the content of the Intraoperative Record and any orders documented therein. Any exception s are noted below.
== END 2017-01-08 11:59 | disposition home or self-care (01) ==
LOC: C.ACU 04:58
PROVIDERS: ATTEND Surgery
DX: R93.3 Abnormal findings on diagnostic imaging of other parts of digestive tract (principal); Z87.19 Personal history of other diseases of the digestive system; I10 Essential (primary) hypertension; E78.00 Pure hypercholesterolemia, unspecified; Z79.82 Long term (current) use of aspirin; Z79.899 Other long term (current) drug therapy

== ENCOUNTER 2017-02-07 12:04 | Observation (INO) | payer OTHER ==
[~2017-02-07] VITALS: Ht 172.7 cm; Wt 90.5 kg
[~2017-02-07 12:04] MED LIST changes: +OXYC-57 PO
[2017-02-07] MEDS ORDERED: ONDANSETRON INJ 2 MG/ML 2 ML VIAL IV STA (12:40)
[2017-02-07] MEDS ORDERED: OPTIRAY 320 IV PRN (12:45)
[2017-02-07 12:50] LABS: BASO % 0.4 %; BASO ABS # 0.04 K/uL (0-0.2); COMPLETE YES; HEMATOCRIT 42.9 % (42-52); IG% 0.1 %; LYMPH % 18.4 %; LYMPH ABS # 1.69 K/uL (1.2-3.4); MEAN CELL VOLUME 91.5 fL (80-100); MEAN CORPUSCULAR HEMOGLOBIN 31.6 pg (25-34); MEAN CORPUSCULAR HGB CONC 34.5 g/dl (32-36); MONO % 7.4 %; NEUT % 72.7 %; PLATELET COUNT 199 K/uL (130-400); RED BLOOD COUNT 4.69 M/uL (4.7-6.1); WHITE BLOOD COUNT 9.16 K/uL (4.8-10.8)
[2017-02-07 13:08] LABS: PROTHROMBIN TIME (PATIENT) 10.3 SECONDS (9.0-12.0)
--- NOTE | 2017-02-07 13:14 | EMERGENCY ROOM VISIT NOTE ---
History Report prepared by Shelly: Katy Cline Under the Supervision of: Dr. Abraham Carbajal M.D. First contact with patient: 12:32 Chief Complaint: ABDOMINAL PAIN Stated Complaint: STOMACH CRAMPS AND NASUEA Nursing Triage Summary: pt reports abd cramps and nausea no vomiting started this am at 0830. pt has hx of blockages sept 15 surgery dec 30. had been dx with mass when had surgery unable to find it during surgery History of Present Illness The patient is a 61 year old male who presents to the Emergency Room with complaints of persistent abdominal pain. The patient rates his discomfort as an 8/10 in severity. The patient notes some abdominal bloating. He states that he is nauseous and has severe abdominal cramps, but denies any vomiting. The patient notes that his pain this time is not as bad as the first time he experienced these symptoms. The patient states that he has a history of intestinal blockages. He states that his last bowel movement was at 0730 this am. He underwent a recent laparoscopy with no worrisome findings noted. Source of History: patient Position: abdomen Symptom Intensity: 8/10 Quality: other (abdominal pain) Timing: other (persistent) Associated Symptoms: + nausea, No vomiting Review of Systems See HPI for pertinent positives & negatives. A total of 10 systems reviewed and were otherwise negative. Past Medical & Surgical Medical Problems: (1) Benign hypertension Family History No pertinent family history. Social History Smoking Status: Never Smoker Alcohol Use: occasionally Drug Use: none Marital Status: Housing Status: lives with family Occupation Status: employed Current/Historical Medications Scheduled Aspirin Enteric Coated (Ecotrin Or Generic), 81 MG PO QAM Atorvastatin (Lipitor), 80 MG PO QAM Lisinopril (Zestril), 10 MG PO QAM Allergies Coded Allergies: Propranolol (Verified Allergy, Unknown, bradycardia, 02/07/17) Physical Exam Vital Signs Date Time Temp Pulse Resp B/P (MAP) Pulse Ox O2 Delivery O2 Flow Rate FiO2 02/07/17 15:22 36.6 47 18 146/78 98 Room Air 02/07/17 14:55 45 168/74 02/07/17 14:32 39 18 208/82 99 Room Air 02/07/17 13:45 38 16 189/95 97 Room Air 02/07/17 12:40 39 11/29/17 12:24 98 Room Air 02/07/17 12:20 36.6 71 18 201/85 97 Room Air Physical Exam GENERAL: Patient is in no acute distress. HEENT: No acute trauma, normocephalic atraumatic, mucous membranes moist, no nasal congestion, no scleral icterus. NECK: No stridor, no adenopathy, no meningismus, trachea is midline. LUNGS: Clear to auscultation bilaterally, no wheeze, no rhonchi, breath sounds equal. HEART: Without murmurs gallops or rubs, regular rate and rhythm. ABDOMEN: Diffusely midly tender. Bowel sounds positive, no hernias, no peritonitis. EXTREMITIES: No cyanosis or edema, full range of motion of all the joints without pain or difficulty, no signs for acute trauma. NEUROLOGIC: Oriented x 3, no acute motor or sensory deficits, no focal weakness. SKIN: No rash, no jaundice, no diaphoresis. Medical Decision & Procedures ER Provider Diagnostic Interpretation: Radiology results as stated below per my review and radiologist interpretation: ABD/PELVIS IV CONTRAST ONLY CT DOSE: 583.98 mGy.cm HISTORY: Pain. Obstruction. ABD PAIN, POSS OBSTRUCTION, IV CONTRAST ONLY TECHNIQUE: Multiaxial CT images of the abdomen and pelvis were performed following the use of intravenous contrast. A dose lowering technique was utilized adhering to the principles of ALARA. COMPARISON STUDY: 11/22/2016 FINDINGS: Minimal basilar nodularity unchanged compared to the prior 2 studies. Findings continuing to be consistent with that of a partial small bowel obstruction in the mid abdomen. Several moderately distended loops of small bowel are similar as compared to the prior study. The potential leading-edge and associated small nodular density is in general similar as best seen transaxial image 261. Bowel pattern otherwise is nonobstructive. Kidneys are negative for hydronephrosis. Appendix is normal. The colonic pattern is nonobstructive. Bladder is midline. IMPRESSION: 1. Similar exam compared to the prior study. 2. Partial small bowel obstruction with unchanged distention of several mid to lower loops of small bowel. 3. Possible polypoid lesion within the transition point of the small bowel distention similar compared to the prior study. 4. Basilar pulmonary nodularity unchanged from the prior study. The above report was generated using voice recognition software. It may contain grammatical, syntax or spelling errors. Electronically signed by: Carlos Heath M.D. 02/07/2017 2:13 PM Laboratory Results 02/07/17 12:40 Red Blood Count 4.69, Mean Corpuscular Volume 91.5, Mean Corpuscular Hemoglobin 31.6, Mean Corpuscular Hemoglobin Concent 34.5, Mean Platelet Volume 11.0, Neutrophils (%) (Auto) 72.7, Lymphocytes (%) (Auto) 18.4, Monocytes (%) (Auto) 7.4, Eosinophils (%) (Auto) 1.0, Basophils (%) (Auto) 0.4, Neutrophils # (Auto) 6.65, Lymphocytes # (Auto) 1.69, Monocytes # (Auto) 0.68, Eosinophils # (Auto) 0.09, Basophils # (Auto) 0.04 02/07/17 12:40 Test 02/07/17 12:40 White Blood Count 9.16 K/uL (4.8-10.8) Red Blood Count 4.69 M/uL (4.7-6.1) Hemoglobin 14.8 g/dL (14.0-18.0) Hematocrit 42.9 % (42-52) Mean Corpuscular Volume 91.5 fL (80-100) Mean Corpuscular Hemoglobin 31.6 pg (25-34) Mean Corpuscular Hemoglobin Concent 34.5 g/dl (32-36) Platelet Count 199 K/uL (130-400) Mean Platelet Volume 11.0 fL (7.4-10.4) Neutrophils (%) (Auto) 72.7 % Lymphocytes (%) (Auto) 18.4 % Monocytes (%) (Auto) 7.4 % Eosinophils (%) (Auto) 1.0 % Basophils (%) (Auto) 0.4 % Neutrophils # (Auto) 6.65 K/uL (1.4-6.5) Lymphocytes # (Auto) 1.69 K/uL (1.2-3.4) Monocytes # (Auto) 0.68 K/uL (0.11-0.59) Eosinophils # (Auto) 0.09 K/uL (0-0.5) Basophils # (Auto) 0.04 K/uL (0-0.2) RDW Standard Deviation 43.7 fL (36.4-46.3) RDW Coefficient of Variation 13.2 % (11.5-14.5) Immature Granulocyte % (Auto) 0.1 % Immature Granulocyte # (Auto) 0.01 K/uL (0.00-0.02) Prothrombin Time 10.3 SECONDS (9.0-12.0) Prothromb Time International Ratio 1.0 (0.9-1.1) Activated Partial Thromboplast Time 25.3 SECONDS (21.0-31.0) Partial Thromboplastin Ratio 1.0 Anion Gap 6.0 mmol/L (3-11) Est Creatinine Clear Calc Drug Dose 95.2 ml/min Estimated GFR () 107.0 Estimated GFR (Non- 92.3 BUN/Creatinine Ratio 17.5 (10-20) Calcium Level 8.7 mg/dl (8.5-10.1) Total Bilirubin 0.9 mg/dl (0.2-1) Aspartate Amino Transf (AST/SGOT) 23 U/L (15-37) Alanine Aminotransferase (ALT/SGPT) 33 U/L (12-78) Alkaline Phosphatase 70 U/L (45-117) Total Protein 7.2 gm/dl (6.4-8.2) Albumin 3.6 gm/dl (3.4-5.0) Globulin 3.6 gm/dl (2.5-4.0) Albumin/Globulin Ratio 1.0 (0.9-2) Lipase 225 U/L (73-393) Hepatitis C Antibody Screen NEG (NEG) Laboratory results reviewed by me. Medications Administered Medications (Trade) Dose Ordered Sig/Holley Route Start Time Stop Time Status Last Admin Dose Admin Ondansetron HCl (Zofran Inj) 4 mg NOW STAT IV 02/07/17 12:40 02/07/17 12:43 DC 02/07/17 12:50 4 MG Hydralazine HCl (HydrALAZINE INJ) 10 mg NOW STAT IV 02/07/17 14:33 02/07/17 14:34 DC 02/07/17 14:43 10 MG ECG Indication: abdominal pain Rate (beats per minute): 42 Rhythm: sinus bradycardia Findings: PAC, no acute ischemic change ED Course 1236: The patient was evaluated in room C7. A complete history and physical exam was performed. 1240: Ordered Zofran Inj 4mg IV. 1245: Ordered 100ml IV. 1335:Upon reexamination the patient is resting comfortably. I discussed results and treatment plan with the patient. He verbalizes agreement and understanding. I spoke with Dr. Wasserman of [facility]. We discussed the patient's results and findings. The patient will be evaluated by Dr. Wasserman for further management. 1433: Ordered Hydralazine HCL 10mg IV. Medical Decision Differential diagnosis includes bowel obstruction, intestinal mass, constipation , bowel rupture, ascites, hernia, diverticulitis or appendicitis. There is no leukocytosis or concerning anemia. No significant electrolyte abnormality, kidney failure, hepatitis or pancreatitis. No coagulopathy. Abdominal and pelvis CT shows a small bowel obstruction with an intestinal mass at the transition point. No free air. The patient received IV hydralazine because of a persistently elevated blood pressure. This did help control the blood pressure. He was given IV Zofran for nausea. He did not require anything for pain. I spoke to the patient, I talked with the casework manager. I discussed the case with general surgery and the on-call hospitalist. Admission/observation is warranted. Consults Time Called: 1332 Consulting Physician: Dr. Wasserman. Alana Returned Call: [phone] Discussed the patient's case. The patient will be evaluated for further management. Additional Consults: Time Called: 1340 Consulted Physician: Dr. Hampton, General Surgery Returned Call: [phone] Additional Comments: Discussed the patient's case. The patient will be evaluated for further management. Impression Primary Impression: Small bowel obstruction Scribe Attestation The scribe's documentation has been prepared under my direction and personally reviewed by me in its entirety. I confirm that the note above accurately reflects all work, treatment, procedures, and medical decision making performed by me. Departure Information Dispostion Being Evaluated By Hospitalist Referrals Rico Cardoso III, M.D. (PCP) Patient Instructions My [facility]
[2017-02-07 13:20] LABS: BUN/CREATININE RATIO 17.5 (10-20); CALCIUM 8.7 mg/dl (8.5-10.1); CREATININE 0.89 mg/dl (0.60-1.40); POTASSIUM 4.1 mmol/L (3.5-5.1)
--- NOTE | 2017-02-07 14:15 | DIAGNOSTIC IMAGING REPORT ---
ABD/PELVIS IV CONTRAST ONLY CT DOSE: 583.98 mGy.cm HISTORY: Pain. Obstruction. ABD PAIN, POSS OBSTRUCTION, IV CONTRAST ONLY TECHNIQUE: Multiaxial CT images of the abdomen and pelvis were performed following the use of intravenous contrast. A dose lowering technique was utilized adhering to the principles of ALARA. COMPARISON STUDY: 11/22/2016 FINDINGS: Minimal basilar nodularity unchanged compared to the prior 2 studies. Findings continuing to be consistent with that of a partial small bowel obstruction in the mid abdomen. Several moderately distended loops of small bowel are similar as compared to the prior study. The potential leading-edge and associated small nodular density is in general similar as best seen transaxial image 261. Bowel pattern otherwise is nonobstructive. Kidneys are negative for hydronephrosis. Appendix is normal. The colonic pattern is nonobstructive. Bladder is midline. IMPRESSION: 1. Similar exam compared to the prior study. 2. Partial small bowel obstruction with unchanged distention of several mid to lower loops of small bowel. 3. Possible polypoid lesion within the transition point of the small bowel distention similar compared to the prior study. 4. Basilar pulmonary nodularity unchanged from the prior study. The above report was generated using voice recognition software. It may contain grammatical, syntax or spelling errors. Electronically signed by: Carlos Heath M.D. 02/07/2017 2:13 PM Dictated Date/Time: 02/07/2017 2:03 PM
[2017-02-07] MEDS ORDERED: HydrALAZINE HCL 20 MG/ML VIAL IV STA (14:33)
[2017-02-07 15:22] VITALS: BP 146/78; PULSE 47; TEMP 36.6; O2SAT 98; Ht 172.7 cm; Wt 90.5 kg
--- NOTE | 2017-02-07 15:23 | Medical Consult ---
Consultation Date of Consultation: Feb 07, 2017. Attending Physician: Reason for Consultation: partial sbo, abd pain , nausea History of Present Illness pt adm through ER with abd pain, nausea, cramps- no vomiting This is recurrent over yrs- has CT showing mass , approx 1 cm wall of sm bowel possibly associated with transition Recent adm 11/2016- same CT findings- Dr Poole performed Dx Laparoscopy on pt 01/08/17- no abnormal findings scheduled for MRI to evaluate SB this Sun- 2 days Past Medical/Surgical History Medical Problems: (1) Small bowel obstruction Status: Acute Social History Smoking Status: Never Smoker Drug Use: none Marital Status: Housing Status: lives with family Occupation Status: employed Allergies Coded Allergies: Propranolol (Verified Allergy, Unknown, bradycardia, 02/07/17) Current Inpatient Medications Current Inpatient Medications Medications (Trade) Dose Ordered Sig/Holley Route Start Time Stop Time Status Last Admin Dose Admin Ioversol (Optiray 320) 100 ml UD PRN IV 02/07/17 12:45 02/11/17 12:44 Review of Systems Constitutional: No fever, No chills, No sweats Respiratory: No cough, No shortness of breath Cardiovascular: No chest pain Abdomen: + pain, + nausea, No vomiting Genitourinary - Male: No dysuria Neurologic: No weakness Integumentary: No rash Physical Exam Date Time Temp Pulse Resp B/P (MAP) Pulse Ox O2 Delivery O2 Flow Rate FiO2 02/07/17 14:55 45 168/74 02/07/17 14:32 39 18 208/82 99 Room Air 02/07/17 13:45 38 16 189/95 97 Room Air 02/07/17 12:40 39 02/07/17 12:24 98 Room Air 02/07/17 12:20 36.6 71 18 201/85 97 Room Air General Appearance: no apparent distress Head: atraumatic Eyes: sclerae normal Neck: supple Respiratory/Chest: no respiratory distress Cardiovascular: regular rate, rhythm Abdomen/GI: soft, + pertinent finding (minimal tenderness, has bowel sounds) Extremities/Musculoskelatal: no pedal edema Neurologic/Psych: alert Skin: no rash Laboratory Results Last 24 Hours Test 02/07/17 12:40 White Blood Count 9.16 K/uL Red Blood Count 4.69 M/uL Hemoglobin 14.8 g/dL Hematocrit 42.9 % Mean Corpuscular Volume 91.5 fL Mean Corpuscular Hemoglobin 31.6 pg Mean Corpuscular Hemoglobin Concent 34.5 g/dl Platelet Count 199 K/uL Mean Platelet Volume 11.0 fL Neutrophils (%) (Auto) 72.7 % Lymphocytes (%) (Auto) 18.4 % Monocytes (%) (Auto) 7.4 % Eosinophils (%) (Auto) 1.0 % Basophils (%) (Auto) 0.4 % Neutrophils # (Auto) 6.65 K/uL Lymphocytes # (Auto) 1.69 K/uL Monocytes # (Auto) 0.68 K/uL Eosinophils # (Auto) 0.09 K/uL Basophils # (Auto) 0.04 K/uL RDW Standard Deviation 43.7 fL RDW Coefficient of Variation 13.2 % Immature Granulocyte % (Auto) 0.1 % Immature Granulocyte # (Auto) 0.01 K/uL Prothrombin Time 10.3 SECONDS Prothromb Time International Ratio 1.0 Activated Partial Thromboplast Time 25.3 SECONDS Partial Thromboplastin Ratio 1.0 Sodium Level 137 mmol/L Potassium Level 4.1 mmol/L Chloride Level 106 mmol/L Carbon Dioxide Level 25 mmol/L Anion Gap 6.0 mmol/L Blood Urea Nitrogen 16 mg/dl Creatinine 0.89 mg/dl Est Creatinine Clear Calc Drug Dose 95.2 ml/min Estimated GFR () 107.0 Estimated GFR (Non- 92.3 BUN/Creatinine Ratio 17.5 Random Glucose 97 mg/dl Calcium Level 8.7 mg/dl Total Bilirubin 0.9 mg/dl Aspartate Amino Transf (AST/SGOT) 23 U/L Alanine Aminotransferase (ALT/SGPT) 33 U/L Alkaline Phosphatase 70 U/L Total Protein 7.2 gm/dl Albumin 3.6 gm/dl Globulin 3.6 gm/dl Albumin/Globulin Ratio 1.0 Lipase 225 U/L Assessment & Plan 02/07/17- adm with abdominal cramps, nausea same as prior with CT findings as described- he does not need urgent surgery- no NG for now. would proceed with MRI, consider GI eval- ?Capsule endoscopy, ? push enteroscopy. Will discuss with Dr Erwin team to resume care. may have ice. monitor electrolytes
[2017-02-07] MEDS ORDERED: ACETAMINOPHEN IV 100 ML IV PRN (16:00)
[2017-02-07] MEDS ORDERED: HydrALAZINE HCL 20 MG/ML VIAL IV. PRN (16:00)
[2017-02-07] MEDS ORDERED: ONDANSETRON INJ 2 MG/ML 2 ML VIAL IV PRN (16:00)
[2017-02-07] MEDS ORDERED: IV FLUIDS COMPLETED PRN (16:30)
[2017-02-07] MEDS: D5W AND 1/2NSS 1,000 ML IV SCH (17:03)
--- NOTE | 2017-02-07 18:04 | History and Physical ---
History & Physical Date & Time of Service: Feb 07, 2017 at 17:52 Chief Complaint: Abdominal Pain, Partial Small Bowel Obstruction Primary Care Physician: Rico Cardoso III, M.D. History of Present Illness Source: patient 61 year old M with only medication at home of lisinopril and statin but significant surgical abdominal history for multiple problems with small bowel obstruction and has been following [facility] surgery in [facility] as outpatient with Dr. Poole who presents to the ED with around 1 day of cramping abdominal pain with nausea. Patient denies vomiting. He has been able to eat, pass stool, and make urine. However, abdominal cramping is described as very painful worse of right and lower quadrants of abdomen. Denies chest pain or shortness of breath. Upon presentation to the ED patient found on CT abdomen imaging to have "Partial small bowel obstruction with unchanged distention of several mid to lower loops of small bowel." Past Medical/Surgical History Medical Problems: (1) Benign hypertension Status: Chronic Family History Diabetes mellitus FATHER Social History Smoking Status: Never Smoker Drug Use: none Marital Status: Housing status: lives with family Occupational Status: employed Immunizations History of Influenza Vaccine: No History of Tetanus Vaccine?: Yes Tetanus Immunization Date: Jul 05, 2009 History of Pneumococcal: No Pneumococcal Date: Feb 23, 2006 History of Hepatitis B Vaccine: No Multi-Drug Resistant Organisms History of MDRO: No Allergies Coded Allergies: Propranolol (Verified Allergy, Unknown, bradycardia, 02/07/17) Home Medications Scheduled Aspirin Enteric Coated (Ecotrin Or Generic), 81 MG PO QAM Atorvastatin (Lipitor), 80 MG PO QAM Lisinopril (Zestril), 10 MG PO QAM Review of Systems Constitutional: No fever Eyes: No worsening of vision ENT: No hearing loss, No unusual epistaxis, No sore throat, No trouble swallowing Respiratory: No cough, No sputum, No wheezing, No shortness of breath Cardiovascular: No chest pain, No edema Abdomen: + pain (cramping abdomenal pain), + nausea, No vomiting, No diarrhea, No constipation Musculoskeletal: No joint pain, No swelling Genitourinary - Male: No dysuria Neurologic: No weakness, No numbness/tingling Psychiatric: No substance abuse Endocrine: No fatigue Hematologic / Lymphatic: No abnormal bleeding/bruising Integumentary: No rash, No itch Physical Exam Vital Signs Date Time Temp Pulse Resp B/P (MAP) Pulse Ox O2 Delivery O2 Flow Rate FiO2 02/07/17 16:11 45 151/75 02/07/17 15:22 36.6 47 18 146/78 98 Room Air 02/07/17 14:55 45 168/74 02/07/17 14:32 39 18 208/82 99 Room Air 02/07/17 13:45 38 16 189/95 97 Room Air 02/07/17 12:40 39 02/07/17 12:24 98 Room Air 02/07/17 12:20 36.6 71 18 201/85 97 Room Air General Appearance: + mild distress (abdominal pain) Head: normocephalic, atraumatic Eyes: normal inspection, EOMI, sclerae normal ENT: normal ENT inspection, hearing grossly normal, pharynx normal Neck: supple, no JVD, trachea midline Respiratory/Chest: chest non-tender, lungs clear, normal breath sounds, no respiratory distress, no accessory muscle use Cardiovascular: + bradycardia Abdomen/GI: normal bowel sounds, soft, no organomegaly, no pulsatile mass, + tenderness (tenderness on deep palpation of lower abdomen), + pertinent finding (small scars from previous surgeries) Back: normal inspection, no CVA tenderness, no muscle spasm, normal range of motion Extremities/Musculoskelatal: normal inspection, no calf tenderness, normal capillary refill, no pedal edema, normal range of motion Neurologic/Psych: no motor/sensory deficits, alert, oriented x 3 Skin: normal color, warm/dry, no rash Diagnostics Laboratory Results Results Past 24 Hours Test 02/07/17 12:40 Range/Units White Blood Count 9.16 4.8-10.8 K/uL Red Blood Count 4.69 4.7-6.1 M/uL Hemoglobin 14.8 14.0-18.0 g/dL Hematocrit 42.9 42-52 % Mean Corpuscular Volume 91.5 80-100 fL Mean Corpuscular Hemoglobin 31.6 25-34 pg Mean Corpuscular Hemoglobin Concent 34.5 32-36 g/dl Platelet Count 199 130-400 K/uL Mean Platelet Volume 11.0 7.4-10.4 fL Neutrophils (%) (Auto) 72.7 % Lymphocytes (%) (Auto) 18.4 % Monocytes (%) (Auto) 7.4 % Eosinophils (%) (Auto) 1.0 % Basophils (%) (Auto) 0.4 % Neutrophils # (Auto) 6.65 1.4-6.5 K/uL Lymphocytes # (Auto) 1.69 1.2-3.4 K/uL Monocytes # (Auto) 0.68 0.11-0.59 K/uL Eosinophils # (Auto) 0.09 0-0.5 K/uL Basophils # (Auto) 0.04 0-0.2 K/uL RDW Standard Deviation 43.7 36.4-46.3 fL RDW Coefficient of Variation 13.2 11.5-14.5 % Immature Granulocyte % (Auto) 0.1 % Immature Granulocyte # (Auto) 0.01 0.00-0.02 K/uL Prothrombin Time 10.3 9.0-12.0 SECONDS Prothromb Time International Ratio 1.0 0.9-1.1 Activated Partial Thromboplast Time 25.3 21.0-31.0 SECONDS Partial Thromboplastin Ratio 1.0 Sodium Level 137 136-145 mmol/L Potassium Level 4.1 3.5-5.1 mmol/L Chloride Level 106 98-107 mmol/L Carbon Dioxide Level 25 21-32 mmol/L Anion Gap 6.0 3-11 mmol/L Blood Urea Nitrogen 16 7-18 mg/dl Creatinine 0.89 0.60-1.40 mg/dl Est Creatinine Clear Calc Drug Dose 95.2 ml/min Estimated GFR () 107.0 Estimated GFR (Non- 92.3 BUN/Creatinine Ratio 17.5 10-20 Random Glucose 97 70-99 mg/dl Calcium Level 8.7 8.5-10.1 mg/dl Total Bilirubin 0.9 0.2-1 mg/dl Aspartate Amino Transf (AST/SGOT) 23 15-37 U/L Alanine Aminotransferase (ALT/SGPT) 33 12-78 U/L Alkaline Phosphatase 70 45-117 U/L Total Protein 7.2 6.4-8.2 gm/dl Albumin 3.6 3.4-5.0 gm/dl Globulin 3.6 2.5-4.0 gm/dl Albumin/Globulin Ratio 1.0 0.9-2 Lipase 225 73-393 U/L Hepatitis C Antibody Screen NEG NEG Diagnostic Radiology ABD/PELVIS IV CONTRAST ONLY COMPARISON STUDY: 11/22/2016 FINDINGS: Minimal basilar nodularity unchanged compared to the prior 2 studies. Findings continuing to be consistent with that of a partial small bowel obstruction in the mid abdomen. Several moderately distended loops of small bowel are similar as compared to the prior study. The potential leading-edge and associated small nodular density is in general similar as best seen transaxial image 261. Bowel pattern otherwise is nonobstructive. Kidneys are negative for hydronephrosis. Appendix is normal. The colonic pattern is nonobstructive. Bladder is midline. IMPRESSION: 1. Similar exam compared to the prior study. 2. Partial small bowel obstruction with unchanged distention of several mid to lower loops of small bowel. 3. Possible polypoid lesion within the transition point of the small bowel distention similar compared to the prior study. 4. Basilar pulmonary nodularity unchanged from the prior study. EKG bradycardia 42 bpm marked sinus arrhythmia with junctional escape complexes Impression Assessment and Plan ABD/PELVIS IV CONTRAST on ED presentation 02/07/17 1. Similar exam compared to the prior study 11/22/16 2. Partial small bowel obstruction with unchanged distention of several mid to lower loops of small bowel. 3. Possible polypoid lesion within the transition point of the small bowel distention similar compared to the prior study. 4. Basilar pulmonary nodularity unchanged from the prior study. Patient evaluated on ED presentation by General Surgery for abd pain, nausea, cramps- no vomiting -no surgical interventions for now -no NG tube at this time -will keep NPO except medications and ice chips for now, IV hydration, antiemetics -abdominal cramping pain: acetaminophen 1000 mg IV q8 hours prn, Flexeril ordered, hold off narcotic pain medications for now unless in severe pain -HTN with hydralazine IV prn, and home dose lisinopril -hold statin for now Patient previously had outpatient study ordered for MRI enterography ordered as outpatient by general surgery clinic Dr. Poole for history of "Abnormal CT scan of the abdomen with history of 3 episodes of SBO with 1 cm mass at site of obstruction but normal diagnostic laparoscopy" -will order this test as inpatient DVT ppx: SCD, ambulation as tolerated Disposition: placed under observation, Reassess symptoms, GI consult may be needed if symptoms become worse Level of Care Med/Surg Advanced Directives Existing Living Will: No Existing Power of Tank Car Loader: No Resuscitation Status FULL RESUSCITATION VTE Prophylaxis VTE Risk Assessment Done? Y/N: Yes Risk Level: Moderate Given or contraindicated: SCD's
[2017-02-07] MEDS: CYCLOBENZAPRINE HCL 5 MG TAB PO SCH (20:19)
[2017-02-07 23:06] VITALS: BP 132/68; PULSE 35; TEMP 36.6; O2SAT 95
[2017-02-08] MEDS: D5W AND 1/2NSS 1,000 ML IV SCH (06:50)
[2017-02-08 07:25] VITALS: BP 155/72; PULSE 40; TEMP 36.3; O2SAT 95
--- NOTE | 2017-02-08 08:10 | Surgery Progress Note ---
Surgery Progress Note Date of Service Feb 08, 2017. Subjective + feeling well, No complaints, No nausea, No vomiting Denies abdominal pain Objective Vital Signs: Date Time Temp Pulse Resp B/P (MAP) Pulse Ox O2 Delivery O2 Flow Rate FiO2 02/08/17 07:25 36.3 40 19 155/72 (99) 95 Room Air 02/07/17 23:20 Room Air 02/07/17 23:06 36.6 35 15 132/68 (89) 95 Room Air 02/07/17 16:30 Room Air 02/07/17 16:11 45 151/75 02/07/17 15:22 36.6 47 18 146/78 98 Room Air 02/07/17 14:55 45 168/74 02/07/17 14:32 39 18 208/82 99 Room Air 02/07/17 13:45 38 16 189/95 97 Room Air 02/07/17 12:40 39 02/07/17 12:24 98 Room Air 02/07/17 12:20 36.6 71 18 201/85 97 Room Air Abdomen: normal bowel sounds, non tender, non distended, soft Laboratory Results: Results Past 24 Hours Test 02/07/17 12:40 02/08/17 04:44 Range/Units White Blood Count 9.16 4.8-10.8 K/uL Red Blood Count 4.69 4.7-6.1 M/uL Hemoglobin 14.8 14.0-18.0 g/dL Hematocrit 42.9 42-52 % Mean Corpuscular Volume 91.5 80-100 fL Mean Corpuscular Hemoglobin 31.6 25-34 pg Mean Corpuscular Hemoglobin Concent 34.5 32-36 g/dl Platelet Count 199 130-400 K/uL Mean Platelet Volume 11.0 7.4-10.4 fL Neutrophils (%) (Auto) 72.7 % Lymphocytes (%) (Auto) 18.4 % Monocytes (%) (Auto) 7.4 % Eosinophils (%) (Auto) 1.0 % Basophils (%) (Auto) 0.4 % Neutrophils # (Auto) 6.65 1.4-6.5 K/uL Lymphocytes # (Auto) 1.69 1.2-3.4 K/uL Monocytes # (Auto) 0.68 0.11-0.59 K/uL Eosinophils # (Auto) 0.09 0-0.5 K/uL Basophils # (Auto) 0.04 0-0.2 K/uL RDW Standard Deviation 43.7 36.4-46.3 fL RDW Coefficient of Variation 13.2 11.5-14.5 % Immature Granulocyte % (Auto) 0.1 % Immature Granulocyte # (Auto) 0.01 0.00-0.02 K/uL Prothrombin Time 10.3 9.0-12.0 SECONDS Prothromb Time International Ratio 1.0 0.9-1.1 Activated Partial Thromboplast Time 25.3 21.0-31.0 SECONDS Partial Thromboplastin Ratio 1.0 Sodium Level 137 136-145 mmol/L Potassium Level 4.1 3.5-5.1 mmol/L Chloride Level 106 98-107 mmol/L Carbon Dioxide Level 25 21-32 mmol/L Anion Gap 6.0 3-11 mmol/L Blood Urea Nitrogen 16 7-18 mg/dl Creatinine 0.89 0.60-1.40 mg/dl Est Creatinine Clear Calc Drug Dose 95.2 ml/min Estimated GFR () 107.0 Estimated GFR (Non- 92.3 BUN/Creatinine Ratio 17.5 10-20 Random Glucose 97 70-99 mg/dl Calcium Level 8.7 8.5-10.1 mg/dl Total Bilirubin 0.9 0.2-1 mg/dl Aspartate Amino Transf (AST/SGOT) 23 15-37 U/L Alanine Aminotransferase (ALT/SGPT) 33 12-78 U/L Alkaline Phosphatase 70 45-117 U/L Total Protein 7.2 6.4-8.2 gm/dl Albumin 3.6 3.4-5.0 gm/dl Globulin 3.6 2.5-4.0 gm/dl Albumin/Globulin Ratio 1.0 0.9-2 Lipase 225 73-393 U/L Hepatitis C Antibody Screen NEG NEG Assessment & Plan Recurrent partial SBO again resolved CT findings again noted For MR enterography today Await result
[2017-02-08 08:21] LABS: BASO % 0.7 %; BASO ABS # 0.04 K/uL (0-0.2); COMPLETE YES; EOS % 3.2 %; HEMATOCRIT 43.8 % (42-52); IG% 0.3 %; LYMPH % 22.7 %; LYMPH ABS # 1.35 K/uL (1.2-3.4); MEAN CELL VOLUME 91.4 fL (80-100); MEAN CORPUSCULAR HEMOGLOBIN 31.3 pg (25-34); MEAN CORPUSCULAR HGB CONC 34.2 g/dl (32-36); MEAN PLATELET VOLUME 10.5 fL (7.4-10.4); MONO % 8.2 %; NEUT % 64.9 %; PLATELET COUNT 177 K/uL (130-400); RED BLOOD COUNT 4.79 M/uL (4.7-6.1); WHITE BLOOD COUNT 5.96 K/uL (4.8-10.8)
[2017-02-08] MEDS: CYCLOBENZAPRINE HCL 5 MG TAB PO SCH (08:32)
[2017-02-08 08:40] LABS: BUN/CREATININE RATIO 11.4 (10-20); CALCIUM 8.4 mg/dl (8.5-10.1); CREATININE 0.91 mg/dl (0.60-1.40); POTASSIUM 4.2 mmol/L (3.5-5.1)
[2017-02-08 08:43] LABS: ALB/GLOB RATIO 0.9 (0.9-2)
[2017-02-08] MEDS ORDERED: LISINOPRIL 10 MG TAB PO SCH (09:00)
[2017-02-08] MEDS ORDERED: GLUCAGON FOR INJ 1 MG VIAL ONE (12:55)
[2017-02-08] MEDS ORDERED: GLUCAGON FOR INJ 1 MG VIAL IM SCH (13:00)
[2017-02-08 14:57] VITALS: BP 129/82; PULSE 44; TEMP 36.5; O2SAT 98
[2017-02-08 16:30] VITALS: O2SAT 98
--- NOTE | 2017-02-08 18:25 | Progress Note ---
Internal Med Progress Note Date of Service: Feb 08, 2017. Provider Documentation: SUBJECTIVE: Patient seen and evaluated at bedside before MR enterography with resolved symptoms of abdominal cramps. Has been able to used the bathroom to make bowel movements. Patient seen and examined post-MR enterography. Feels well OBJECTIVE: Exam: General- no acute distress Eyes- EOMI ENT- normal Neck- no JVD Lungs- CTABL Heart- RRR Abdomen - soft, nontender, + bowel sounds Extremities - no edema Neuro- no focal deficits ASSESSMENT & PLAN: ABD/PELVIS IV CONTRAST on ED presentation 02/07/17 1. Similar exam compared to the prior study 11/22/16 2. Partial small bowel obstruction with unchanged distention of several mid to lower loops of small bowel. 3. Possible polypoid lesion within the transition point of the small bowel distention similar compared to the prior study. 4. Basilar pulmonary nodularity unchanged from the prior study. Patient evaluated on ED presentation by General Surgery for abd pain, nausea, cramps- no vomiting Partial small bowel obstruction symptoms resolved MR enterography 02/08/17 performed, radiographic read pending DISPOSITION discharge home: patient to call Dr. Poole's office in regards to MR enterography read results 02/15/2017 11:00 AM Rico Cardoso III, MD [facility] 02/21/2017 3:45 PM Carlos Poole MD General Surgery, [facility] Vital Signs: Date Time Temp Pulse Resp B/P (MAP) Pulse Ox O2 Delivery O2 Flow Rate FiO2 02/08/17 16:30 98 Room Air 02/08/17 14:57 36.5 44 18 129/82 (98) 98 Room Air 02/08/17 10:51 Room Air 02/08/17 07:25 36.3 40 19 155/72 (99) 95 Room Air 02/07/17 23:20 Room Air 02/07/17 23:06 36.6 35 15 132/68 (89) 95 Room Air Lab Results: Results Past 24 Hours Test 02/08/17 08:07 Range/Units White Blood Count 5.96 4.8-10.8 K/uL Red Blood Count 4.79 4.7-6.1 M/uL Hemoglobin 15.0 14.0-18.0 g/dL Hematocrit 43.8 42-52 % Mean Corpuscular Volume 91.4 80-100 fL Mean Corpuscular Hemoglobin 31.3 25-34 pg Mean Corpuscular Hemoglobin Concent 34.2 32-36 g/dl Platelet Count 177 130-400 K/uL Mean Platelet Volume 10.5 7.4-10.4 fL Neutrophils (%) (Auto) 64.9 % Lymphocytes (%) (Auto) 22.7 % Monocytes (%) (Auto) 8.2 % Eosinophils (%) (Auto) 3.2 % Basophils (%) (Auto) 0.7 % Neutrophils # (Auto) 3.87 1.4-6.5 K/uL Lymphocytes # (Auto) 1.35 1.2-3.4 K/uL Monocytes # (Auto) 0.49 0.11-0.59 K/uL Eosinophils # (Auto) 0.19 0-0.5 K/uL Basophils # (Auto) 0.04 0-0.2 K/uL RDW Standard Deviation 43.6 36.4-46.3 fL RDW Coefficient of Variation 13.1 11.5-14.5 % Immature Granulocyte % (Auto) 0.3 % Immature Granulocyte # (Auto) 0.02 0.00-0.02 K/uL Sodium Level 137 136-145 mmol/L Potassium Level 4.2 3.5-5.1 mmol/L Chloride Level 104 98-107 mmol/L Carbon Dioxide Level 24 21-32 mmol/L Anion Gap 9.0 3-11 mmol/L Blood Urea Nitrogen 10 7-18 mg/dl Creatinine 0.91 0.60-1.40 mg/dl Est Creatinine Clear Calc Drug Dose 93.1 ml/min Estimated GFR () 105.1 Estimated GFR (Non- 90.6 BUN/Creatinine Ratio 11.4 10-20 Random Glucose 110 70-99 mg/dl Calcium Level 8.4 8.5-10.1 mg/dl Total Bilirubin 1.0 0.2-1 mg/dl Aspartate Amino Transf (AST/SGOT) 25 15-37 U/L Alanine Aminotransferase (ALT/SGPT) 30 12-78 U/L Alkaline Phosphatase 71 45-117 U/L Total Protein 6.6 6.4-8.2 gm/dl Albumin 3.2 3.4-5.0 gm/dl Globulin 3.4 2.5-4.0 gm/dl Albumin/Globulin Ratio 0.9 0.9-2
--- NOTE | 2017-02-08 18:29 | Discharge Instructions ---
Discharge Instructions Date of Service Feb 08, 2017. Admission Reason for Admission: Abdominal Pain, Partial Small Bowel Obstruction Discharge Discharge Diagnosis / Problem: partial small bowel obstruction, nausea, abdominal cramping Discharge Goals Goal(s): Decrease discomfort, Improve function Activity Recommendations Activity Limitations: resume your previous activity . Instructions / Follow-Up Instructions / Follow-Up ABD/PELVIS IV CONTRAST on ED presentation 02/07/17 1. Similar exam compared to the prior study 11/22/16 2. Partial small bowel obstruction with unchanged distention of several mid to lower loops of small bowel. 3. Possible polypoid lesion within the transition point of the small bowel distention similar compared to the prior study. 4. Basilar pulmonary nodularity unchanged from the prior study. Patient evaluated on ED presentation by General Surgery for abd pain, nausea, cramps- no vomiting Partial small bowel obstruction symptoms resolved MR enterography 02/08/17 performed, radiographic read pending DISPOSITION discharge home: patient to call Dr. Poole's office in regards to MR enterography read results 02/15/2017 11:00 AM Rico Cardoso III, MD [facility] 02/21/2017 3:45 PM Carlos Poole MD General Surgery, [facility] Current Hospital Diet Patient's current hospital diet: Regular Diet Discharge Diet Recommended Diet: Regular Diet Pending Studies Studies pending at discharge: yes List of pending studies: MR enterography results Laboratory Results 02/08/17 08:07 Red Blood Count 4.79, Mean Corpuscular Volume 91.4, Mean Corpuscular Hemoglobin 31.3, Mean Corpuscular Hemoglobin Concent 34.2, Mean Platelet Volume 10.5, Neutrophils (%) (Auto) 64.9, Lymphocytes (%) (Auto) 22.7, Monocytes (%) (Auto) 8.2, Eosinophils (%) (Auto) 3.2, Basophils (%) (Auto) 0.7, Neutrophils # (Auto) 3.87, Lymphocytes # (Auto) 1.35, Monocytes # (Auto) 0.49, Eosinophils # (Auto) 0.19, Basophils # (Auto) 0.04 02/08/17 08:07 Test 02/07/17 12:40 02/08/17 08:07 Prothrombin Time 10.3 SECONDS (9.0-12.0) Prothromb Time International Ratio 1.0 (0.9-1.1) Activated Partial Thromboplast Time 25.3 SECONDS (21.0-31.0) Partial Thromboplastin Ratio 1.0 Lipase 225 U/L (73-393) Hepatitis C Antibody Screen NEG (NEG) White Blood Count 5.96 K/uL (4.8-10.8) Red Blood Count 4.79 M/uL (4.7-6.1) Hemoglobin 15.0 g/dL (14.0-18.0) Hematocrit 43.8 % (42-52) Mean Corpuscular Volume 91.4 fL (80-100) Mean Corpuscular Hemoglobin 31.3 pg (25-34) Mean Corpuscular Hemoglobin Concent 34.2 g/dl (32-36) Platelet Count 177 K/uL (130-400) Mean Platelet Volume 10.5 fL (7.4-10.4) Neutrophils (%) (Auto) 64.9 % Lymphocytes (%) (Auto) 22.7 % Monocytes (%) (Auto) 8.2 % Eosinophils (%) (Auto) 3.2 % Basophils (%) (Auto) 0.7 % Neutrophils # (Auto) 3.87 K/uL (1.4-6.5) Lymphocytes # (Auto) 1.35 K/uL (1.2-3.4) Monocytes # (Auto) 0.49 K/uL (0.11-0.59) Eosinophils # (Auto) 0.19 K/uL (0-0.5) Basophils # (Auto) 0.04 K/uL (0-0.2) RDW Standard Deviation 43.6 fL (36.4-46.3) RDW Coefficient of Variation 13.1 % (11.5-14.5) Immature Granulocyte % (Auto) 0.3 % Immature Granulocyte # (Auto) 0.02 K/uL (0.00-0.02) Anion Gap 9.0 mmol/L (3-11) Est Creatinine Clear Calc Drug Dose 93.1 ml/min Estimated GFR () 105.1 Estimated GFR (Non- 90.6 BUN/Creatinine Ratio 11.4 (10-20) Calcium Level 8.4 mg/dl (8.5-10.1) Total Bilirubin 1.0 mg/dl (0.2-1) Aspartate Amino Transf (AST/SGOT) 25 U/L (15-37) Alanine Aminotransferase (ALT/SGPT) 30 U/L (12-78) Alkaline Phosphatase 71 U/L (45-117) Total Protein 6.6 gm/dl (6.4-8.2) Albumin 3.2 gm/dl (3.4-5.0) Globulin 3.4 gm/dl (2.5-4.0) Albumin/Globulin Ratio 0.9 (0.9-2) Medical Emergencies . Who to Call and When: Medical Emergencies: If at any time you feel your situation is an emergency, please call 911 immediately. . Non-Emergent Contact Non-Emergency issues call your: Primary Care Provider, Surgeon Call Non-Emergent contact if: your pain is not controlled . . "Provider Documentation" section prepared by Prosper Powers. . VTE Core Measure Inpt VTE Proph given/why not?: SCD's
--- NOTE | 2017-02-08 18:30 | Discharge Summary ---
Discharge Summary Date of Service Feb 08, 2017. Discharge Summary Admission Date: Feb 07, 2017 at 15:47 Discharge Date: Feb 08, 2017 Discharge Disposition: Home Principal Diagnosis: partial small bowel obstruction, nausea, abdominal cramping Consultations: general surgery Medication Reconciliation Continued Medications: Aspirin Enteric Coated (Ecotrin Or Generic) 81 Mg Tab 81 MG PO QAM, 0 Refills Atorvastatin (Lipitor) 40 Mg Tab 80 MG PO QAM Lisinopril (Zestril) 10 Mg Tab 10 MG PO QAM, TAB Admission Information HPI (per Admitting provider): 61 year old M with only medication at home of lisinopril and statin but significant surgical abdominal history for multiple problems with small bowel obstruction and has been following [facility] general surgery in [facility] as outpatient with Dr. Poole who presents to the ED with around 1 day of cramping abdominal pain with nausea. Patient denies vomiting. He has been able to eat, pass stool, and make urine. However, abdominal cramping is described as very painful worse of right and lower quadrants of abdomen. Denies chest pain or shortness of breath. Upon presentation to the ED patient found on CT abdomen imaging to have "Partial small bowel obstruction with unchanged distention of several mid to lower loops of small bowel. Physical Exam (per Admitting): General Appearance: + mild distress (abdominal pain) Head: normocephalic, atraumatic Eyes: normal inspection, EOMI, sclerae normal ENT: normal ENT inspection, hearing grossly normal, pharynx normal Neck: supple, no JVD, trachea midline Respiratory/Chest: chest non-tender, lungs clear, normal breath sounds, no respiratory distress, no accessory muscle use Cardiovascular: + bradycardia Abdomen/GI: normal bowel sounds, soft, no organomegaly, no pulsatile mass, + tenderness (tenderness on deep palpation of lower abdomen), + pertinent finding (small scars from previous surgeries) Back: normal inspection, no CVA tenderness, no muscle spasm, normal range of motion Extremities/Musculoskelatal: normal inspection, no calf tenderness, normal capillary refill, no pedal edema, normal range of motion Neurologic/Psych: no motor/sensory deficits, alert, oriented x 3 Skin: normal color, warm/dry, no rash Hospital Course ABD/PELVIS IV CONTRAST on ED presentation 02/07/17 1. Similar exam compared to the prior study 11/22/16 2. Partial small bowel obstruction with unchanged distention of several mid to lower loops of small bowel. 3. Possible polypoid lesion within the transition point of the small bowel distention similar compared to the prior study. 4. Basilar pulmonary nodularity unchanged from the prior study. Patient evaluated on ED presentation by General Surgery for abd pain, nausea, cramps- no vomiting Partial small bowel obstruction symptoms resolved MR enterography 02/08/17 performed, radiographic read pending DISPOSITION discharge home: patient to call Dr. Poole's office in regards to MR enterography read results 02/15/2017 11:00 AM Rico Cardoso III, MD [facility] 02/21/2017 3:45 PM Carlos Poole MD General Surgery, [facility] Total time spent on discharge = 35 minutes This includes examination of the patient, discharge planning, medication reconciliation, and communication with other providers. Discharge Instructions see above
[2017-02-08 18:46] VITALS: BP 129/82; PULSE 44; TEMP 36.5; O2SAT 98
--- NOTE | 2017-02-08 19:55 | DIAGNOSTIC IMAGING REPORT ---
ENTEROGRAPHY ABD/PELVIS COMBO HISTORY: 61 years-old Male abdominal pain acute abdominal pain, nausea and cramping. Partial small bowel obstruction noted on comparison CT with questioned polyploid lesion within a loop of transitioned small bowel within the right midabdomen COMPARISON: CT abdomen and pelvis 02/07/2017, CT abdomen and pelvis 10/22/2013. TECHNIQUE: MR enterography of the abdomen and pelvis was obtained according to institutional protocol both with and without the use of 9.5 mL Gadavist. 900 mL Volumin was also administered. 1 mg glucagon intramuscular injection was given in the right deltoid at 1411 hours. FINDINGS: Large [id number] grain spouter localizer images demonstrate no gross abnormality. There is mild nonspecific perinephric stranding bilaterally. Kidneys otherwise appear unremarkable. Urinary bladder is mildly distended. Prostate measures within the upper limits of normal. No aortic aneurysm or adenopathy identified. No significant colonic diverticular disease. Peripherally enhancing T2 hyperintense cyst of the spleen measures 1.3 x 1.3 cm. Gallbladder, liver, pancreas and adrenal glands are within normal limits. There is decreased small bowel dilation compared to prior study. No focal strictures. Peristalsing bowel identified within all 4 quadrants. Small bowel loops measure up to 2.5 cm transversely. Previously questioned polypoid lesion within small bowel the right lower quadrant is not appreciated. No abnormal enhancement or bowel wall thickening identified. No evidence of appendicitis. Soft tissues and bones appear intact. Degenerative changes are seen throughout the spine, pelvis and hips. IMPRESSION: 1. Decreased small bowel dilation from comparison study without evidence of bowel obstruction. 2. No abnormal enhancement or focal bowel wall thickening identified. Previously questioned polypoid lesion within small bowel of the right lower quadrant is not appreciated. 3. Benign-appearing cyst of the spleen measures 1.3 cm, unchanged dating back to at least 2013. The above report was generated using voice recognition software. It may contain grammatical, syntax or spelling errors. Electronically signed by: Bryson Álvarez M.D. 02/08/2017 7:54 PM Dictated Date/Time: 02/08/2017 4:14 PM
== END 2017-02-08 18:50 | disposition other institution (70) ==
LOC: C.EDB 12:08 → C.MSW 15:47 → ENRESERV 16:03
PROVIDERS: ADMIT Hospitalist; ATTEND Hospitalist
DX: K56.600 Partial intestinal obstruction, unspecified as to cause (principal); R11.0 Nausea; I10 Essential (primary) hypertension; R10.9 Unspecified abdominal pain

== ENCOUNTER 2020-02-02 09:19 | Observation (INO) ==
--- OUTSIDE RECORDS SUMMARY | 2020-02-02 09:21 | External Medical Summary | Continuity of Care Document ---
:1955 Author Name Brendon Cui Address Unavailable Unavailable , Care Team Providers Name Role Phone Melchor Hampton M.D. Unavailable [email or web address] [email or web address], E Unavailable Unavailable Unavailable Unavailable Unavailable Problems Small bowel obstruction (560.9) (K56.609) Hypertension (401.9) (I10) Hypercholesterolemia (272.0) (E78.00) Allergies and Adverse Reactions No Known Drug Allergies (Allergy) Medications Lisinopril 20 MG Oral Tablet; TAKE 1 TABLET DAILY. Start: 20-Nov-2013 Refills: 0 Lipitor 80 MG Oral Tablet; TAKE 1 TABLET DAILY. Start: 20-Nov-2013 Refills: 0 Procedures History of Knee Surgery Status: Complete d History of Cataract Surgery Status: Comp leted Immunizations Immunizations not documented Family History Mother Family history of cardiac disorder (V17.49) (Z82.49) Status: Active Father Family history of cardiac disorder (V17.49) (Z82.49) Status: Active Unknown Family Member Family history of malignant neoplasm (V16.9) Status: Active Comments: Family History (Z80.9) Family history of diabetes mellitus (V18.0) Status: Active Comments: Family History (Z83.3) Family history of hypertension (V17.49) Status: Active Comments: Family History (Z82.49) Social History - Smoking Status Never smoked tobacco Plan of Treatment Planned Observations Planned Goals not documented Results No Known Results Results not documented
--- OUTSIDE RECORDS SUMMARY | 2020-02-02 09:21 | External Medical Summary | Continuity of Care Document ---
:1955 Author Name Brendon Cui Address Unavailable Unavailable , Care Team Providers Name Role Phone Melchor Hampton M.D. Unavailable [email or web address]HELLE III, E Unavailable Unavailable Unavailable Unavailable Unavailable Problems Small bowel obstruction (560.9) (K56.609) Hypercholesterolemia (272.0) (E78.00) Hypertension (401.9) (I10) Allergies and Adverse Reactions No Known Drug [...]
[2020-02-02] MEDS ORDERED: NITROGLYCERIN 2% OINTMENT 30GM TUBE EXT ONE (09:32)
[2020-02-02] MEDS ORDERED: ASPIRIN CHEW 324 MG PO STA (09:32)
--- NOTE | 2020-02-02 09:55 | XRay Report ---
XR chest 1V portable HISTORY: 64 years-old Male chest pain acute atypical chest pain COMPARISON: Chest radiograph 12/07/2017 TECHNIQUE: Portable AP view of the chest FINDINGS: Cardiac silhouette is enlarged, unchanged. No pneumothorax, pleural effusion, airspace consolidation or overt pulmonary edema. Mild right hemidiaphragmatic elevation. Bones of the chest appear grossly i ntact. IMPRESSION: Cardiomegaly without acute process. ACT 112: Negative or not required by law. The above report was generated using voice recognition software. It may contain grammatical, syntax o r spelling errors. Electronically signed by: Bryson Álvarez M.D. 02/02/2020 9:54 AM
[2020-02-02] MEDS ORDERED: HEPARIN SODIUM/DEXTROSE 25,000 UNITS/500 ML BAG IV SCH (10:00)
[2020-02-02] MEDS ORDERED: ONDANSETRON INJ 2 MG/ML 2 ML VIAL IV STA (10:10)
[2020-02-02] MEDS ORDERED: NITROGLYCERIN SL 0.4 MG/TAB TAB SL STA ×3 (10:10→11:00)
[2020-02-02 10:12] LABS: Basophils # (auto) 0.01 K/uL (0-0.2); Basophils % (auto) 0.1 %; Eosinophils # (auto) 0.04 K/uL (0-0.5); Eosinophils % (auto) 0.3 %; Hematocrit (blood only) 45.3 % (42-52); Hemoglobin 15.7 g/dL (14.0-18.0); Immature Granulocytes # (auto) 0.02 K/uL (0.00-0.02); Immature Granulocytes % (auto) 0.2 %; Lymphocytes # (auto) 1.31 K/uL (1.2-3.4); Lymphocytes % (auto) 11.2 %; Mean Corpuscular Hemoglobin 32.6 pg (25-34); Mean Corpuscular Hgb Conc 34.7 g/dL (32-36); Mean Platelet Volume 11.3 fL (7.4-10.4); Monocytes # (auto) 0.97 K/uL (0.11-0.59); Monocytes % (auto) 8.3 %; Neutrophils # (auto) 9.36 K/uL (1.4-6.5); Neutrophils % (auto) 79.9 %; Platelet Count 224 K/uL (130-400); RDW Coefficient of Variation 13.5 % (11.5-14.5); RDW Standard Deviation 46.1 fL (36.4-46.3); Red Blood Count 4.82 M/uL (4.7-6.1); White Blood Count 11.71 K/uL (4.8-10.8)
[2020-02-02 10:28] LABS: Partial Thromboplastin Ratio 0.8; Partial Thromboplastin Time 23.4 Seconds (21.0-31.0); Prothrombin Time 10.3 Seconds (9.0-12.0)
[2020-02-02 10:29] LABS: Albumin Level 3.8 gm/dl (3.4-5.0); BUN Creatinine Ratio 13.6 (10-20); Calcium 9.6 mg/dl (8.5-10.1); Creatinine Clr Calc Pharmacy 66.7 ml/min; Est GFR (African American) 73.6; Est GFR (Non-African American) 63.5; Potassium 3.3 mmol/L (3.5-5.1)
[2020-02-02] MEDS ORDERED: HEPARIN SOD (PORCINE) 1000 UNIT/ML 10 ML VIAL ONE (10:36)
[2020-02-02 10:41] LABS: D Dimer 2730 ug/L FEU (0-500)
[2020-02-02 10:42] LABS: Albumin Globulin Ratio 0.9 (0.9-2); Bilirubin,Total 0.9 mg/dl (0.2-1); Globulin 4.2 gm/dl (2.5-4.0); Thyroid Stimulating Hormone 0.889 uIu/ml (0.300-4.500); Troponin I 8.63 ng/ml (0-0.045)
[2020-02-02] MEDS ORDERED: MoRPHine SULFATE 4 MG/ML 1 ML CARP\\VIAL IV PRN (10:45)
[2020-02-02] MEDS ORDERED: TICAGRELOR 90 MG TAB PO ONE (11:07)
[2020-02-02] MEDS ORDERED: MIDAZOLAM HCL 1 MG/ML 2ML VIAL ONE ×2 (11:13→11:22)
[2020-02-02] MEDS ORDERED: niCARdipine HCL INJ 2.5 MG/ML 10 ML AMP ONE ×2 (11:13→11:22)
[2020-02-02] MEDS ORDERED: HEPARIN (PORCINE) 1000 UNIT/ML 10 ML (CATH LAB USE ONLY) ONE ×2 (11:13→11:22)
[2020-02-02] MEDS ORDERED: NITROGLYCERIN/D5W 100MCG/ML 20ML SYR ONE ×2 (11:14→11:23)
[2020-02-02] MEDS ORDERED: fentaNYL citrate 100 MCG/2 ML VIAL ONE ×2 (11:14→11:22)
--- NOTE | 2020-02-02 11:23 | Cardiology Consultation ---
Date of Consultation February 02, 2020 Assessment & Plan (1) Acute myocardial infarction: (2) Dyslipidemia: (3) Hypertension: (4) Sinus bradycardia: ASSESSMENT/PLAN: 1. Acute MS: Presentation consistent with myocardial infarction. He has likely been infarcting since yesterday morning, greater than 24 hours. With continued pain, recommend urgent cardiac catheterization. He has received aspirin, heparin, and Brilinta in the emergency department. Nitroglycerin paste was removed due to hypotension. ECG concerning for LAD. Risks and benefits of cardiac catheterization were discussed with him in detail. He was made aware that CT surgery is not available at this facility. He was agreeable to undergo the procedure and PCI if deemed appropriate. 2. Hypertension: Has a history of hypertension on lisinopril and HCTZ. Became hypotensive after nitroglycerin and nitroglycerin paste. Blood pressure has improved with IV fluids and removal of nitroglycerin paste. 3. Dyslipidemia: Continue high-intensity statin therapy. 4. Disposition: proceeding with cardiac catheterization on an urgent basis given ongoing pain for infarction that has likely been occurring for greater than 24 hours. Cardiology will continue to follow. Presentation discussed with professional employer consultant, Dr. Ortega who will proceed with cardiac catheterization. 35 min critical care time spent evaluating and managing the patient in the ER and accompanying him to the cardiac catheterization lab, as well as coordinating care. Thank you for allowing me to participate in the care of your patient. Please call for any other questions or concerns. Sincerely, Davy Chacko M.D. History of Present Illness Reason for Consultation: Acute MS Requesting Physician: Dr. Muñoz Attending Physician: Dr. Muñoz History of Present Illness Mr. Casas is a very pleasant 64-year-old gentleman with history significant for hypertension, dyslipidemia, and recurrent bowel obstruction who presented to the emergency department today (02/02/2020) with chest discomfort and elevated troponins. He has been experiencing intermittent chest discomfort over the past few days. Then yesterday morning, 02/01/2020, chest discomfort intensified and has been persistent since then. It is a substernal chest discomfort that has radiated to his neck and bilateral shoulders. It is associated with shortness of breath. In the ER, he received nitroglycerin x3 with some improvement of his symptoms but chest pain has persisted. Nitropaste was also placed. He became hypotensive with systolic blood pressure as low as the 60s per report. This improved with removal of nitroglycerin paste and IV fluids. He had transient nausea but no vomiting. He was less responsive when significantly hypotensive but otherwise denies syncope, near-syncope, palpitations, edema, or bleeding such as melena, hematochezia, hematuria. He has never been formally diagnosed with diabetes but does have hypertension and dyslipidemia for which he takes lisinopril and atorvastatin, respectively. He underwent cardiac catheterization approximately 15 years ago at [facility] and was told that it was normal. In the ER, he was noted to have minor anterior ST elevation with T-wave inversion, which was new from prior ECG on 12/07/2017. He has remained in sinus bradycardia which is chronic. Review of systems: As above. Review of systems otherwise negative/ unremarkabl e. Family history: There is a family history of CAD. Father had CABG and valve surgery. Mother in her 60s and had undergone valve repair. Social history: Denies smoking. He drinks 1 glass of wine per day. No drugs. Lives at home with his . Two children. Works part-time for [employer]. He was unaccompanied the in the ER. Allergies Allergy/AdvReac Type Severity Reaction Status Date / Time propranolol Allergy Unknown bradycardia Verified 02/02/20 09:59 Home Medications Medication Instructions Recorded Confirmed Type atorvastatin 80 mg PO QDL 12/07/17 02/02/20 History aspirin [Aspir-Low] 81 mg PO QDL 02/02/20 02/02/20 History wvfvqfv-lswsxoacydgmx-yrzzmpbo 2 tab PO UD PRN 02/02/20 02/02/20 History [Excedrin Migraine] lisinopril-hydrochlorothiazide 1 tab PO QDL 02/02/20 02/02/20 History sertraline 50 mg PO QDL 02/02/20 02/02/20 History Patient History Medical History (Updated 02/02/20 @ 11:31 by Ganga Chacko MD) Dyslipidemia Hypertension Partial small bowel obstruction (07/06/11) Social History Smoking Status: Never smoker Feels Safe at Home: Yes Physical Exam 2 Physical Exam: Gen.: No distress. Alert and oriented. HEENT: Anicteric sclera. Neck: No JVD. No bruits. Normal carotid upstrokes bilaterally. Cardiac: PMI was nondisplaced. No ventricular heave. Bradycardic but regular in the 40s to 50s. Normal S1-S2. No murmurs, rubs, or gallops. Pulmonary: Clear to auscultation bilaterally without wheezes, rales, or rhonchi. Abdomen: Soft, nontender, nondistended, with normoactive bowel sounds. No bruits noted. Extremities: 2+ radial pulses bilaterally. 2+ posterior tibialis pulses bilaterally. No edema or cyanosis. No palpable cords. Psychiatric: Affect appears appropriate. Results & Data ([facility]) Vital Signs (Past 12 Hours) Vital Signs Temp Pulse Resp BP Pulse Ox 02/02/20 11:01 60 18 98 02/02/20 11:00 57 L 15 90/69 L 98 02/02/20 10:58 58 L 16 85/50 L 97 02/02/20 10:57 57 L 18 138/118 H 97 02/02/20 10:55 62 13 69/42 L 99 02/02/20 10:54 55 L 18 93/67 L 97 02/02/20 10:46 61 22 98 02/02/20 10:44 55 L 19 142/88 H 99 02/02/20 10:31 55 L 17 99 02/02/20 10:30 54 L 22 155/107 H 98 02/02/20 10:15 52 L 18 98 02/02/20 10:09 61 18 98 02/02/20 10:05 60 23 150/100 H 98 02/02/20 09:32 95 02/02/20 09:25 36.8 C 61 20 137/95 97 Laboratory Results Laboratory Results - last 24 hr 02/02/20 02/02/20 02/02/20 10:00 10:00 10:00 WBC 11.71 H RBC 4.82 Hgb 15.7 Hct 45.3 MCV 94.0 MCH 32.6 MCHC 34.7 RDW Std Deviation 46.1 RDW Coeff of Rob 13.5 Plt Count 224 MPV 11.3 H Immature Gran % (Auto) 0.2 Neut % (Auto) 79.9 Lymph % (Auto) 11.2 Clinch % (Auto) 8.3 Eos % (Auto) 0.3 Baso % (Auto) 0.1 Neut # (Auto) 9.36 H Lymph # (Auto) 1.31 Clinch # (Auto) 0.97 H Eos # (Auto) 0.04 Baso # (Auto) 0.01 Immature Gran # (Auto) 0.02 PT 10.3 INR 1.0 APTT 23.4 PTT Ratio 0.8 D-Dimer 2730 H* Sodium 135 L Potassium 3.3 L Chloride 101 Carbon Dioxide 27 Anion Gap 7.0 BUN 16 Creatinine 1.20 Est Cr Clr Drug Dosing 66.7 Est GFR ( Amer) 73.6 Est GFR (Non-Af Amer) 63.5 BUN/Creatinine Ratio 13.6 Glucose 144 H Calcium 9.6 Magnesium 2.0 Total Bilirubin 0.9 AST 102 H ALT 39 Alkaline Phosphatase 78 Troponin I 8.630 H* Total Protein 8.0 Albumin 3.8 Globulin 4.2 H Albumin/Globulin Ratio 0.9 Lipase 144 TSH 0.889 Diagnostic Findings ECGs personally reviewed: ECG 02/02/2020 at 9:24 a.m.: Sinus bradycardia [address] /T-wave abnormality concerning for ischemia. ECG 02/02/2020 at 10:46 a.m.: Sinus bradycardia [address] /T-wave abnormality, concerning for ischemia. Chest x-ray 02/02/2020: Personally reviewed. No infiltrate. No acute process identified. Medications Administered Current Inpatient Medications Heparin Sodium/Dextrose (Heparin Sodium/Dextrose) 25,000 units in 500 mls @ 27 mls/hr IV .[id number] [facility]; Protocol Stop: 03/03/20 09:59 Last Admin: 02/02/20 10:41 Dose: 1,350 units/hr, 27 mls/hr Documented by: Morphine Sulfate (Morphine Sulfate 4 Mg/Ml 1 Ml Carp\Vial) 4 mg IV Q15M PRN PRN Reason: Pain Stop: 02/16/20 10:44 Last Admin: 02/02/20 10:58 Dose: 4 mg Documented by: PG Care Time/CCT Total # of Minutes Spent Total Time Spent with Patient: Total time spent is greater than 50% in coordination of care (as documented) at patient's floor/unit and/or counseling patient: Critical Care Time: Yes Total Critical Care Time: 35 Coding Level of Care Code None Diagnoses Acute myocardial infarction I21.9 Dyslipidemia E78.5 Hypertension I10 Sinus bradycardia R00.1 Additional Codes Critical Care Time - Critical Care Time: Yes ([id number]) Time Spent (min) 35 Comment Critical care time [id number]
--- NOTE | 2020-02-02 11:24 | Pre Anesthesia Assessment ---
Date of Service February 02, 2020 Pre Sedation Assessment Vital Signs Temp Pulse Resp BP Pulse Ox 02/02/20 11:01 60 18 98 02/02/20 11:00 57 L 15 90/69 L 98 02/02/20 10:58 58 L 16 85/50 L 97 02/02/20 10:57 57 L 18 138/118 H 97 02/02/20 10:55 62 13 69/42 L 99 02/02/20 10:54 55 L 18 93/67 L 97 02/02/20 10:46 61 22 98 02/02/20 10:44 55 L 19 142/88 H 99 02/02/20 10:31 55 L 17 99 02/02/20 10:30 54 L 22 155/107 H 98 02/02/20 10:15 52 L 18 98 02/02/20 10:09 61 18 98 02/02/20 10:05 60 23 150/100 H 98 02/02/20 09:32 95 02/02/20 09:25 36.8 C 61 20 137/95 97 Cardiovascular + bradycardic Respiratory normal respiratory effort, lungs clear to auscultation Pre-Sedation Airway Assessment Smoking Status: Never smoker Mallampati Class: II ASA: ASA3 NPO Status Date of Last Intake of Fluids: 02/02/20 Time of Last Intake of Fluids: 08:00 Date of Last Intake of Solid Food: 02/02/20 Time of Last Intake of Solid Foods: 08:00 Procedure Planning Contraindications for Sedation: none Current Medications Reviewed: Yes Notes The planned sedation has been discussed with the patient. Informed Consent was obtained. I have identified the patient, determined the appropriateness of sedation and have assessed the patient immediately prior to the procedure. All medicine(s) and interventions are by my order.
--- NOTE | 2020-02-02 11:27 | Pre Anesthesia Assessment ---
Date of Service February 02, 2020 Pre Sedation Assessment Vital Signs Temp Pulse Resp BP Pulse Ox 02/02/20 11:01 60 18 98 02/02/20 11:00 57 L 15 90/69 L 98 02/02/20 10:58 58 L 16 85/50 L 97 02/02/20 10:57 57 L 18 138/118 H 97 02/02/20 10:55 62 13 69/42 L 99 02/02/20 10:54 55 L 18 93/67 L 97 02/02/20 10:46 61 22 98 02/02/20 10:44 55 L 19 142/88 H 99 02/02/20 10:31 55 L 17 99 02/02/20 10:30 54 L 22 155/107 H 98 02/02/20 10:15 52 L 18 98 02/02/20 10:09 61 18 98 02/02/20 10:05 60 23 150/100 H 98 02/02/20 09:32 95 02/02/20 09:25 98.2 F 61 20 137/95 97 Cardiovascular RRR, no murmur, no edema Respiratory normal respiratory effort, lungs clear to auscultation Pre-Sedation Airway Assessment Smoking Status: Never smoker Hx Sleep Apnea: No Hx Difficult Intubation: No Short, Thick Neck: No Thyromental Distance: > or= 3.5 Finger Breadths Oral Cavity: + WNL Mallampati Class: II ASA: ASA3 NPO Status Date of Last Intake of Fluids: 02/02/20 Time of Last Intake of Fluids: 08:00 Date of Last Intake of Solid Food: 02/02/20 Time of Last Intake of Solid Foods: 08:00 Procedure Planning Contraindications for Sedation: none Current Medications Reviewed: Yes Notes The planned sedation has been discussed with the patient. Informed Consent was obtained. I have identified the patient, determined the appropriateness of sedation and have assessed the patient immediately prior to the procedure. All medicine(s) and interventions are by my order.
--- NOTE | 2020-02-02 11:33 | Emergency Department Note ---
History of Present Illness General Chief complaint: Chest Pain Stated complaint: CHEST PAIN Time Seen by Provider: 02/02/20 09:31 History of Present Illness Maximum Pain Intensity: 7 This is a 64-year-old male presenting to the emergency department for evaluation of substernal chest pain. The patient has had intermittent symptoms for the past 48 hours. His symptoms were initially very intermittent, but over the past 12 to 16 hours are significantly worse. He rates his discomfort a 7/10, dull, with occasional radiation to his neck and shoulder. He may have had a period yesterday of low pain rated a 1/10, but last night into today the pain has been persistent. He has tried some migraine medication without any improvement of symptoms. The patient does not have a known distinct cardiac history, although he did have what seems to be a normal cardiac catheterization 15 years ago. There is strong family history on both maternal and paternal sides of cardiac disease, including his mother who in her 60s from heart related issues. The patient is not diabetic. He does not report any recent travel history or known exposure to disease. Home Medications Medication Instructions Recorded Confirmed Type atorvastatin 80 mg PO QDL 12/07/17 02/02/20 History aspirin [Aspir-Low] 81 mg PO QDL 02/02/20 02/02/20 History [id number] 2 tab PO UD PRN 02/02/20 02/02/20 History [Excedrin Migraine] lisinopril-hydrochlorothiazide 1 tab PO QDL 02/02/20 02/02/20 History sertraline 50 mg PO QDL 02/02/20 02/02/20 History Allergies Allergy/AdvReac Type Severity Reaction Status Date / Time propranolol Allergy Unknown bradycardia Verified 02/02/20 09:59 Past Med/Surg History Medical History (Updated 02/02/20 @ 16:46 by Jack Merrill PA-C) Acute myocardial infarction Dyslipidemia Hypertension Partial small bowel obstruction (07/06/11) Surgical History (Updated 02/02/20 @ 16:34 by Jack Merrill PA-C) History of cardiac catheterization Cath 02/02/2020. Findings: LM -normal caliber, no significant disease LAD -large caliber, 100% acute on chronic proximal LAD occlusion at takeoff of first septal/D1. Mid/distal vessel partially fills via right to left collaterals. Large D1 without significant disease. Circumflex -medium caliber, no significant disease RCA -dominant, large caliber, no significant disease Social History Smoking Status: Never smoker Hx Alcohol Use: Yes Alcohol type: beer Hx Substance Use: No Preferred Language: Czech Communication Ability: Effective Beliefs That Will Affect Care: None Current Living Situation: Spouse Other Information That Helps Us Care for You: No Feels Safe at Home: Yes Safety Concerns: Feels Safe At This Time Assistive Devices: None Review of Systems A total of 10 systems reviewed and were otherwise negative Physical Exam Vital Signs Vital Signs - 24 hr 02/02/20 09:25 02/02/20 09:32 02/02/20 10:05 Temperature 36.8 C Temperature Source Oral Pulse Rate 61 60 Pulse Rate from SpO2 Sensor 60 Pulse Rhythm Regular Pulse Strength Normal Respiratory Rate 20 23 Respiratory Effort / Characteristics Non-Labored Spontaneous Respiratory Depth Normal Respiratory Pattern Regular Blood Pressure 137/95 150/100 H Blood Pressure Mean 109 106 Blood Pressure Position Sitting Pulse Oximetry 97 95 98 Oxygen Delivery Method Room Air Room Air Sepsis Recent Fever Within 48 Hours No Sepsis New/Unexplained Change in Mental Status N/A Sepsis Action Taken by Nursing No Action Required 02/02/20 10:09 02/02/20 10:15 02/02/20 10:30 Temperature Temperature Source Pulse Rate 61 52 L 54 L Pulse Rate from SpO2 Sensor 59 L 52 L 54 L Pulse Rhythm Pulse Strength Respiratory Rate 18 18 22 Respiratory Effort / Characteristics Respiratory Depth Respiratory Pattern Blood Pressure 155/107 H Blood Pressure Mean 129 Blood Pressure Position Pulse Oximetry 98 98 98 Oxygen Delivery Method Sepsis Recent Fever Within 48 Hours Sepsis New/Unexplained Change in Mental Status Sepsis Action Taken by Nursing 02/02/20 10:31 02/02/20 10:44 02/02/20 10:46 Temperature Temperature Source Pulse Rate 55 L 55 L 61 Pulse Rate from SpO2 Sensor 55 L 55 L 61 Pulse Rhythm Pulse Strength Respiratory Rate 17 19 22 Respiratory Effort / Characteristics Respiratory Depth Respiratory Pattern Blood Pressure 142/88 H Blood Pressure Mean 108 Blood Pressure Position Pulse Oximetry 99 99 98 Oxygen Delivery Method Sepsis Recent Fever Within 48 Hours Sepsis New/Unexplained Change in Mental Status Sepsis Action Taken by Nursing 02/02/20 10:54 02/02/20 10:55 02/02/20 10:57 Temperature Temperature Source Pulse Rate 55 L 62 57 L Pulse Rate from SpO2 Sensor 55 L 58 L 57 L Pulse Rhythm Pulse Strength Respiratory Rate 18 13 18 Respiratory Effort / Characteristics Respiratory Depth Respiratory Pattern Blood Pressure 93/67 L 69/42 L 138/118 H Blood Pressure Mean 72 45 123 Blood Pressure Position Pulse Oximetry 97 99 97 Oxygen Delivery Method Sepsis Recent Fever Within 48 Hours Sepsis New/Unexplained Change in Mental Status Sepsis Action Taken by Nursing 02/02/20 10:58 02/02/20 11:00 02/02/20 11:01 Temperature Temperature Source Pulse Rate 58 L 57 L 60 Pulse Rate from SpO2 Sensor 58 L 58 L 59 L Pulse Rhythm Pulse Strength Respiratory Rate 16 15 18 Respiratory Effort / Characteristics Respiratory Depth Respiratory Pattern Blood Pressure 85/50 L 90/69 L Blood Pressure Mean 59 77 Blood Pressure Position Pulse Oximetry 97 98 98 Oxygen Delivery Method Sepsis Recent Fever Within 48 Hours Sepsis New/Unexplained Change in Mental Status Sepsis Action Taken by Nursing VITALS: Vitals are noted on the nurse's note and reviewed by myself. Vital signs stable. GENERAL: Ill-appearing white male. He is intermittently bradycardic. HEAD: Normocephalic atraumatic. EARS: External ear normal. External auditory canals clear, tympanic membranes pearly iqbal without erythema or effusion bilaterally. NECK: Supple without nuchal rigidity. No lymphadenopathy. No thyromegaly. Cervical spine is nontender. HEART: Regular rate and rhythm without murmurs gallops or rubs. LUNGS: Clear to auscultation bilaterally without wheezes, rales or rhonchi. No retractions or accessory muscle use. ABDOMEN: Positive normal bowel sounds x 4. Soft, nontender, without masses or organomegaly. MUSCULOSKELETAL: No muscle atrophy, erythema, or edema noted. Full range of motion in all extremities. CHEST WALL: No reproducible chest wall tenderness on palpation. No rash. NEURO: Patient was alert and oriented to person place and time. CN II through XII grossly intact. Course Administered Medications Heparin Sodium/Dextrose (Heparin Sodium/Dextrose) 25,000 units in 500 mls @ 27 mls/hr IV .[id number] [facility]; Protocol Stop: 03/03/20 09:59 Last Admin: 02/02/20 10:41 Dose: 1,350 units/hr, 27 mls/hr Documented by: [id number] Cosigned by: [id number] Sodium Chloride (Nss 1000ml) 1,000 mls @ 100 mls/hr IV .Q10H [facility] Stop: 02/02/20 19:59 Last Admin: 02/02/20 16:15 Dose: 100 mls/hr Documented by: [id number] Eptifibatide (Integrilin) 75 mg in 100 mls @ 14.448 mls/hr IV .[id number] [facility]; Protocol Stop: 02/02/20 18:00 Last Admin: 02/02/20 16:15 Dose: 2 mcg/kg/min, 14.4 mls/hr Documented by: [id number] Cosigned by: [id number] Lisinopril (Lisinopril 5 Mg Tab) 5 mg PO Q12H [facility] Stop: 03/03/20 13:59 Last Admin: 02/02/20 14:43 Dose: 5 mg Documented by: [id number] Morphine Sulfate (Morphine Sulfate 4 Mg/Ml 1 Ml Carp\Vial) 4 mg IV Q15M PRN PRN Reason: Pain Stop: 02/16/20 10:44 Last Admin: 02/02/20 10:58 Dose: 4 mg Documented by: [id number] Discontinued Medications Aspirin (Aspirin Chew 324 Mg) 324 mg PO NOW STA Stop: 02/02/20 09:33 Last Admin: 02/02/20 09:56 Dose: 324 mg Documented by: [id number] Eptifibatide (Eptifibatide 2 Mg/Ml 10 Ml Vial ([facility] Use Only)) Confirm Administered Dose 20 mg IV .STK-MED ONE Stop: 02/02/20 11:46 Last Admin: 02/02/20 12:05 Dose: 8 ml Documented by: [id number] Eptifibatide (Eptifibatide 2 Mg/Ml 10 Ml Vial ([facility] Use Only)) Confirm Administered Dose 20 mg IV .STK-MED ONE Stop: 02/02/20 11:48 Last Admin: 02/02/20 12:05 Dose: 8 ml Documented by: [id number] Eptifibatide (Eptifibatide 0.75 Mg/Ml 75mg Vial ([facility] Use Only)) Confirm Administered Dose 75 mg .ROUTE .STK-MED ONE Stop: 02/02/20 12:08 Last Admin: 02/02/20 12:08 Dose: 75 mg Documented by: [id number] Fentanyl Citrate (Fentanyl Citrate 100 Mcg/2 Ml Vial) Confirm Administered Dose 100 mcg .ROUTE .STK-MED ONE Stop: 02/02/20 11:15 Last Admin: 02/02/20 14:32 Dose: Not Given Documented by: [id number] Fentanyl Citrate (Fentanyl Citrate 100 Mcg/2 Ml Vial) Confirm Administered Dose 100 mcg .ROUTE .STK-MED ONE Stop: 02/02/20 11:23 Last Increment: 02/02/20 12:08 Dose: 25 mcg Documented by: [id number] Heparin Sodium (Porcine) (Heparin Sod (Porcine) 1000 Unit/Ml 10 Ml Vial) Confirm Administered Dose 10,000 units .ROUTE .STK-MED ONE Stop: 02/02/20 10:37 Last Admin: 02/02/20 10:42 Dose: 6,000 units Documented by: [id number] Cosigned by: [id number] Heparin Sodium (Porcine) (Heparin (Porcine) 1000 Unit/Ml 10 Ml ([facility] Use Only)) Confirm Administered Dose 10,000 units .ROUTE .STK-MED ONE Stop: 02/02/20 11:14 Last Admin: 02/02/20 14:31 Dose: Not Given Documented by: [id number] Heparin Sodium (Porcine) (Heparin (Porcine) 1000 Unit/Ml 10 Ml ([facility] Use Only)) Confirm Administered Dose 10,000 units .ROUTE .STK-MED ONE Stop: 02/02/20 11:23 Last Admin: 02/02/20 12:07 Dose: 5,000 units Documented by: [id number] Heparin Sodium/Dextrose (Heparin Iv Standard With Bolus) 1 ea IV NOW STA; Protocol Stop: 02/02/20 09:57 Last Admin: 02/02/20 10:58 Dose: 1 ea Documented by: [id number] Heparin Sodium/Sodium Chloride (Heparin In Nss Infusion 1000 Unit/500 Ml (2 U/Ml) Bag) Confirm Administered Dose 3,000 units IV .STK-MED ONE Stop: 02/02/20 11:15 Last Admin: 02/02/20 12:04 Dose: 3,000 units Documented by: [id number] Heparin Sodium/Sodium Chloride (Heparin In Nss Infusion 1000 Unit/500 Ml (2 U/Ml) Bag) Confirm Administered Dose 3,000 units IV .STK-MED ONE Stop: 02/02/20 11:24 Last Admin: 02/02/20 12:05 Dose: 3,000 units Documented by: [id number] Midazolam HCl (Midazolam Hcl 1 Mg/Ml 2ml Vial) Confirm Administered Dose 2 mg .ROUTE .STK-MED ONE Stop: 02/02/20 11:14 Last Admin: 02/02/20 14:32 Dose: Not Given Documented by: [id number] Midazolam HCl (Midazolam Hcl 1 Mg/Ml 2ml Vial) Confirm Administered Dose 2 mg .ROUTE .STK-MED ONE Stop: 02/02/20 11:23 Last Admin: 02/02/20 12:05 Dose: 1 mg Documented by: [id number] Nicardipine HCl (Nicardipine Hcl Inj 2.5 Mg/Ml 10 Ml Amp) Confirm Administered Dose 25 mg .ROUTE .STK-MED ONE Stop: 02/02/20 11:14 Last Admin: 02/02/20 14:31 Dose: Not Given Documented by: [id number] Nicardipine HCl (Nicardipine Hcl Inj 2.5 Mg/Ml 10 Ml Amp) Confirm Administered Dose 25 mg .ROUTE .STK-MED ONE Stop: 02/02/20 11:23 Last Admin: 02/02/20 12:04 Dose: 25 mg Documented by: [id number] Nitroglycerin (Nitroglycerin 2% Ointment 30gm Tube) 1 inch EXT NOW ONE Stop: 02/02/20 09:33 Last Admin: 02/02/20 09:56 Dose: 1 inch Documented by: [id number] Nitroglycerin (Nitroglycerin Sl 0.4 Mg/Tab Tab) 0.4 mg SL NOW STA Stop: 02/02/20 10:11 Last Admin: 02/02/20 10:31 Dose: 0.4 mg Documented by: [id number] Nitroglycerin (Nitroglycerin Sl 0.4 Mg/Tab Tab) 0.4 mg SL NOW STA Stop: 02/02/20 10:52 Last Admin: 02/02/20 10:44 Dose: 0.4 mg Documented by: [id number] Nitroglycerin (Nitroglycerin Sl 0.4 Mg/Tab Tab) 0.4 mg SL NOW STA Stop: 02/02/20 11:01 Last Admin: 02/02/20 10:49 Dose: 0.4 mg Documented by: [id number] Nitroglycerin/Dextrose (Nitroglycerin/D5w 100mcg/Ml 20ml Syr) Confirm Administered Dose 2,000 mcg .ROUTE .STK-MED ONE Stop: 02/02/20 11:15 Last Admin: 02/02/20 14:32 Dose: Not Given Documented by: [id number] Nitroglycerin/Dextrose (Nitroglycerin/D5w 100mcg/Ml 20ml Syr) Confirm Administered Dose 2,000 mcg .ROUTE .STK-MED ONE Stop: 02/02/20 11:24 Last Admin: 02/02/20 12:05 Dose: 2,000 mcg Documented by: [id number] Ondansetron HCl (Ondansetron Inj 2 Mg/Ml 2 Ml Vial) 4 mg IV NOW STA Stop: 02/02/20 10:11 Last Admin: 02/02/20 10:54 Dose: 4 mg Documented by: [id number] Ticagrelor (Ticagrelor 90 Mg Tab) Confirm Administered Dose 180 mg PO .STK-MED ONE Stop: 02/02/20 11:08 Last Admin: 02/02/20 11:10 Dose: 180 mg Documented by: [id number] Critical Care Time I have personally spent greater than 135 minutes of critical care time in the direct management of this patient. This includes bedside care, interpretation of diagnostic studies, and testing, discussion with consultants, patient, and family members, and other required patient management activities. This 135 m inutes is in excess of all separately billable procedures. Medical Decision Making Differential Diagnosis Differential diagnosis includes, but is not limited to: Myocardial infarction, dysrhythmia, pericarditis, pneumothorax, aortic aneurysm/dissection, DVT/PE, anxiety, GERD, PUD, electrolyte imbalance, thyroid disorder, pneumonia, bronchitis, pancreatitis, and others Laboratory Data Result diagrams: 02/02/20 10:00 02/02/20 10:00 Lab Results 02/02/20 02/02/20 02/02/20 Range/Units 10:00 10:00 10:00 WBC 11.71 H (4.8-10.8) K/uL RBC 4.82 (4.7-6.1) M/uL Hgb 15.7 (14.0-18.0) g/dL Hct 45.3 (42-52) % MCV 94.0 (80-100) fL MCH 32.6 (25-34) pg MCHC 34.7 (32-36) g/dL RDW Std Deviation 46.1 (36.4-46.3) fL RDW Coeff of Rob 13.5 (11.5-14.5) % Plt Count 224 (130-400) K/uL MPV 11.3 H (7.4-10.4) fL Immature Gran % (Auto) 0.2 % Neut % (Auto) 79.9 % Lymph % (Auto) 11.2 % Kerr % (Auto) 8.3 % Eos % (Auto) 0.3 % Baso % (Auto) 0.1 % Neut # (Auto) 9.36 H (1.4-6.5) K/uL Lymph # (Auto) 1.31 (1.2-3.4) K/uL Kerr # (Auto) 0.97 H (0.11-0.59) K/uL Eos # (Auto) 0.04 (0-0.5) K/uL Baso # (Auto) 0.01 (0-0.2) K/uL Immature Gran # (Auto) 0.02 (0.00-0.02) K/uL PT 10.3 (9.0-12.0) Seconds INR 1.0 (0.9-1.1) APTT 23.4 (21.0-31.0) Seconds PTT Ratio 0.8 Activ Coag Time Kaolin (94-140) SECONDS D-Dimer 2730 H* (0-500) ug/L FEU Sodium 135 L (136-145) mmol/L Potassium 3.3 L (3.5-5.1) mmol/L Chloride 101 (98-107) mmol/L Carbon Dioxide 27 (21-32) mmol/L Anion Gap 7.0 (3-11) BUN 16 (7-18) mg/dl Creatinine 1.20 (0.6-1.4) mg/dl Est Cr Clr Drug Dosing 66.7 ml/min Est GFR ( Amer) 73.6 Est GFR (Non-Af Amer) 63.5 BUN/Creatinine Ratio 13.6 (10-20) Glucose 144 H (70-99) mg/dl Calcium 9.6 (8.5-10.1) mg/dl Magnesium 2.0 (1.8-2.4) mg/dl Total Bilirubin 0.9 (0.2-1) mg/dl AST 102 H (15-37) U/L ALT 39 (12-78) U/L Alkaline Phosphatase 78 (45-117) U/L Troponin I 8.630 H* (0-0.045) ng/ml Total Protein 8.0 (6.4-8.2) gm/dl Albumin 3.8 (3.4-5.0) gm/dl Globulin 4.2 H (2.5-4.0) gm/dl Albumin/Globulin Ratio 0.9 (0.9-2) Lipase 144 (73-393) U/L TSH 0.889 (0.300-4.500) uIu/ml 02/02/20 Range/Units 11:50 WBC (4.8-10.8) K/uL RBC (4.7-6.1) M/uL Hgb (14.0-18.0) g/dL Hct (42-52) % MCV (80-100) fL MCH (25-34) pg MCHC (32-36) g/dL RDW Std Deviation (36.4-46.3) fL RDW Coeff of Rob (11.5-14.5) % Plt Count (130-400) K/uL MPV (7.4-10.4) fL Immature Gran % (Auto) % Neut % (Auto) % Lymph % (Auto) % Kerr % (Auto) % Eos % (Auto) % Baso % (Auto) % Neut # (Auto) (1.4-6.5) K/uL Lymph # (Auto) (1.2-3.4) K/uL Kerr # (Auto) (0.11-0.59) K/uL Eos # (Auto) (0-0.5) K/uL Baso # (Auto) (0-0.2) K/uL Immature Gran # (Auto) (0.00-0.02) K/uL PT (9.0-12.0) Seconds INR (0.9-1.1) APTT (21.0-31.0) Seconds PTT Ratio Activ Coag Time Kaolin 268 H (94-140) SECONDS D-Dimer (0-500) ug/L FEU Sodium (136-145) mmol/L Potassium (3.5-5.1) mmol/L Chloride (98-107) mmol/L Carbon Dioxide (21-32) mmol/L Anion Gap (3-11) BUN (7-18) mg/dl Creatinine (0.6-1.4) mg/dl Est Cr Clr Drug Dosing ml/min Est GFR ( Amer) Est GFR (Non-Af Amer) BUN/Creatinine Ratio (10-20) Glucose (70-99) mg/dl Calcium (8.5-10.1) mg/dl Magnesium (1.8-2.4) mg/dl Total Bilirubin (0.2-1) mg/dl AST (15-37) U/L ALT (12-78) U/L Alkaline Phosphatase (45-117) U/L Troponin I (0-0.045) ng/ml Total Protein (6.4-8.2) gm/dl Albumin (3.4-5.0) gm/dl Globulin (2.5-4.0) gm/dl Albumin/Globulin Ratio (0.9-2) Lipase (73-393) U/L TSH (0.300-4.500) uIu/ml Imaging Data Radiologist's Impression: XR chest 1V portable HISTORY: 64 years-old Male chest pain acute atypical chest pain COMPARISON: Chest radiograph 12/07/2017 TECHNIQUE: Portable AP view of the chest FINDINGS: Cardiac silhouette is enlarged, unchanged. No pneumothorax, pleural effusion, airspace consolidation or overt pulmonary edema. Mild right hemidiaphragmatic elevation. Bones of the chest appear grossly intact. IMPRESSION: Cardiomegaly without acute process. ECG Data Attestation: I personally reviewed and interpreted this ECG as follows: Indication: + chest pain Additional Comments: EKG #1 Sinus bradycardia @55 bpm Possible Left atrial enlargement T wave abnormality, consider anterolateral ischemia When compared with ECG of 07-DEC-2017 19:02, Premature atrial complexes are no longer Present Non-specific change in ST segment in Inferior leads T wave inversion now evident in Anterolateral leads QT has lengthened EKG#2 Sinus bradycardia @59 bpm Possible Left atrial enlargement Left ventricular hypertrophy T wave abnormality, consider anterior ischemia Abnormal ECG When compared with ECG of 02-FEB-2020 09:24, (unconfirmed) No significant change was found EKG#3 Sinus bradycardia with marked sinus arrhythmia ST elevation consider lateral injury or acute infarct ACUTE CA / STEMI Abnormal ECG When compared with ECG of 02-FEB-2020 10:46, (unconfirmed) ST elevation now present in Anterior leads MDM Narrative Physical exam and history were performed. Nursing notes, EMR, and Medication List were personally reviewed. Patient appears to have chest pain off and on for the past 2 days. His pain has been more persistent for at least the past 12 hours. EKG was performed and highly concerning on initial findings as may suggest a Wellens syndrome in V2 and V3. IV access was established and labs were obtained. The patient was given 324 mg chewable aspirin as well as 1 inch of Nitropaste. Chest x-ray was performed. Case was discussed with my attending physician, Dr. Muñoz, who also independently evaluated the patient and remain closely involved in care and decision-making. An order was placed for continuous cardiac monitoring. The monitor shows a rate of 51 with sinus bradycardia rhythm. The patient blood work is as above and was reviewed. He has a minimally elevated white blood cell count of 11.7. He does not have a significant anemia, bandemia, or gross electrolyte imbalance. Covid swab was performed [id number] and negative. Chest x-ray was reviewed by myself and radiology showing no acute process. Upon identifying the patient's EKG, I did discuss the case with the on-call crap shooter, Dr. Ortega. Dr. Ortega was kind enough to review the EKG as well, and as the patient has persistent pain with his symptoms recommendation was to begin Heparin, and Dr. Ortega will evaluate the patient here in the ER. Heparin bolus and drip was provided. The patient continued to have pain in the chest, and was given additional sublingual nitroglycerin without significant improvement of his pain. The patient's troponin did finally return, and was elevated at 8.6, continuing o ur concern for cardiac process. After the third nitroglycerin was given, we did provide the patient a small amount of morphine and Zofran. After administration of the morphine and Zofran, I was called back to the room overhead as the patient had an episode of hypotension at 69/42. The patient was reclined backwards and fluid bolus was given, and this did reverse his hypertension. Of note, after the morphine and Zofran the patient did have significant improvement of his pain, now only rating this a 1/10. Interventional cardiology did remain closely aware of the patient's status, as they are currently in the case, and are planning on taking this patient to [facility] as he does have the elevated troponin and worrisome EKG. The patient did not have significant EKG changes on his second EKG. He was evaluated at bedside by cardiology Dr. Chacko, and second IV was placed. I did discuss the findings at length with the patient's , Jazzmine, at [phone]. Whom we do have permission to speak with. She was kept up-to-date regarding her 's status. The patient remained in stable condition throughout the remainder of his ER stay. His final EKG performed here in the ER does show acute STEMI, which was our concern from the beginning. Thankfully he is imminently traveling to [facility]. Please see the cardiology team's dictations for further patient course, plan, and disposition. The chart was completed utilizing [employer] Speech Voice Recognition Software. Gra mmatical errors, random word insertions, pronoun errors, and incomplete sentences are an occasional consequence of this system due to software limitations, ambient noise, and hardware issues. Any formal questions or concerns about the content, text, or information contained within the body of this dictation should be directly addressed to the provider for clarification. . Impression & Plan Acute CA, Dyslipidemia, Chest pain Discharge Plan Visit Data Chief Complaint: Chest Pain Stated Complaint: CHEST PAIN ED Provider: Wilfred Muñoz ED Midlevel Provider: Jack Merrill Discharge Problem: Acute CA, Dyslipidemia, Chest pain Patient Disposition: Still a Patient Discharge Instructions Interventions: ED Discharge Assessment Last Done: 02/02/20 11:25 Discharge Problem: Acute CA Qualifiers: Myocardial infarction type: unspecified Involved coronary artery: LAD coronary artery Qualified Code(s): I21.02 - ST elevation (STEMI) myocardial infarction involving left anterior descending coronary artery Chest pain Qualifiers: Chest pain type: precordial pain Qualified Code(s): R07.2 - Precordial pain
[2020-02-02] MEDS ORDERED: EPTIFIBATIDE 2 MG/ML 10 ML VIAL (CATH LAB USE ONLY) IV ONE ×2 (11:45→11:47)
[2020-02-02] MEDS ORDERED: EPTIFIBATIDE 0.75 MG/ML 75MG VIAL (CATH LAB USE ONLY) ONE (12:07)
[2020-02-02] MEDS ORDERED: ONDANSETRON INJ 2 MG/ML 2 ML VIAL IV PRN (12:28)
[2020-02-02] MEDS ORDERED: ACETAMINOPHEN 325 MG TAB PO PRN (12:28)
[2020-02-02] MEDS ORDERED: EPTIFIBATIDE BOLUS/DRIP IV STA (12:28)
--- NOTE | 2020-02-02 12:28 | Post Anesthesia Assessment ---
Date of Service February 02, 2020 Post Sedation Assessment Vital Signs Temp Pulse Resp BP Pulse Ox 02/02/20 11:01 60 18 98 02/02/20 11:00 57 L 15 90/69 L 98 02/02/20 10:58 58 L 16 85/50 L 97 02/02/20 10:57 57 L 18 138/118 H 97 02/02/20 10:55 62 13 69/42 L 99 02/02/20 10:54 55 L 18 93/67 L 97 02/02/20 10:46 61 22 98 02/02/20 10:44 55 L 19 142/88 H 99 02/02/20 10:31 55 L 17 99 02/02/20 10:30 54 L 22 155/107 H 98 02/02/20 10:15 52 L 18 98 02/02/20 10:09 61 18 98 02/02/20 10:05 60 23 150/100 H 98 02/02/20 09:32 95 02/02/20 09:25 98.2 F 61 20 137/95 97 Recovery Score Activity: Moves 4 extremities Respiration: Deep Breath/Cough Circulation: +/-20% PreAnes Value Consciousness: Fully Awake Oxygen Saturation: O2 needed for >90% Discharge Sedation Level of Care: Fast Track Phase II Post Sedation Plan On clinical assessment, the patient appears to have tolerated the sedation without complications. Patient is recovering as anticipated. Patient will continue to be monitored by nursing and may be discharged when sedation discharge criteria are met per below protocol. Upon Completions of procedure up to 15 minutes continue every 5 minute vital signs and the P.A.R. score; then discharge to a Phase I or Fast Track to Phase II per the following guidelines: * Discharge Patient to appropriate Phase II area if PAR is 8 or greater or return to pre- procedure baseline. The post - procedure orders will be as directed. * If PAR score is less than 8 or not return to pre-procedure baseline then patie nt will follow Phase I monitoring till PAR is reached for Phase II. The Phase I may be done in procedure room or may call to secure a Phase I area. * If naloxone or flumazenil are used for reversal, hold in Phase I for continued monitoring from when last reversal dose was given for a minimum of 60 minutes or longer pending the nurse and/or physician discretion of patient condition before discharge to Phase II. Please call the Sedation Physician to re-evaluate and complete post-note for discharge to Phase II area. Do NOT discharge from procedure sedation or Phase 1 until post- sedation ev aluation note is complete by procedure /sedation MD Sedation Discharge Instructions to be given to the patient at discharge to home.
[2020-02-02] MEDS ORDERED: SODIUM CHLORIDE 0.9% 1000ML 1,000 ML IV SCH (12:30)
[2020-02-02] MEDS ORDERED: EPTIFIBATIDE 75 MG/100 ML VIAL IV SCH (12:30)
[2020-02-02] MEDS ORDERED: MoRPHine SULFATE 2 MG/ML CARP IV PRN (12:45)
--- NOTE | 2020-02-02 12:48 | Cardiac Catheterization ---
[facility] Data: [employer] Cardiac Status Clinical evaluation leading to the procedure CAD Presenation: Non STEMI Anginal Classification: CCS IV Heart Failure: No Cardiogenic Shock within 24 Hours: No Cardiac Arrest within 24 Hours: No Imaging Studies Past 6 Months: No Stress Studies Past 6 Months: No Diagnostic Physicians Name: Carl Ortega MD Status: Urgent Closure Device Percutaneous Entry Location: Radial Closure Device: Radial Band Recommendations: PCI without planned CABG PCI Indication: PCI for high risk Non-JAMEL Lesion Segment Name: Proximal LAD Culprit Artery: Yes Stenosis Prior to Rx (%): 100 Chronic Total Occlusion: No IVUS: Yes FFR: No Pre-Procedure SKYE Flow: 0 Previously Treated Lesion: No Lesion Complexity: Non-High/Non-C Lesion Length (mm): 20 Thrombus Present: Yes Bifurcation Lesion: Yes Guidewire Across Lesion: Stenosis Post-Procedure (%): 0 Post-Procedure SKYE Flow: 3 Devices(s) Deployed: Yes Yes Intraprocedure Events Significant Disection: No Perforation: No Cardiac Cath Procedure Full Procedure Date February 02, 2020 Pre-Procedure Diagnosis Pre-Procedure Diagnosis: Non STEMI AUC Score AUC Score: 9 Post-Procedure Diagnosis Post-Procedure Diagnosis: Severe CAD, Successful PCI and Normal Intracardiac Pressures Procedure(s) Performed Procedure(s) Performed: Coronary Angiography, Left Heart Cath, Drug Eluting Stent and IVUS Brim Stitcher Carl Ortega MD Knurling Machine Tender(s) Tracie Estimated Blood Loss Estimated Blood Loss: 15 Medication(s) Medication(s): Aspirin, Fentanyl, Heparin, Integrilin, Lidocaine 1%, Nicardipine, Nitroglycerin and Versed Medication(s): Ticagrelor Summary of Findings Indication: High risk NSTEMI Intermittent chest pain over weeks, worse over the last day. ECG with subtle anterior ST elevations in V1 through V3 with T wave inversions and initial troponin of 8.6. Access: 6 Fr slender right radial artery Catheters: [place], pigtail, EBU 3.5 guide Findings: LM -normal caliber, no significant disease LAD -large caliber, 100% acute on chronic proximal LAD occlusion at takeoff of first septal/D1. Mid/distal vessel partially fills via right to left collaterals. Large D1 without significant disease. Circumflex -medium caliber, no significant disease RCA -dominant, large caliber, no significant disease. LVEDP -15 -- PCI -- Antithrombotic therapy: Heparin, ticagrelor, Integrilin Procedure: Left main cannulated with EBU 3.5 guide BMW wire placed into D1 Cruller Maker 50 wire passed across LAD lesion into distal vessel Proximal LAD lesion predilated with 2.5 compliant balloon Crawford IVUS catheter placed into mid LAD. Pullback revealed severe disease with associated thrombus extending from mid segment back into proximal vessel, mildly calcified. Dilated lesion stented with 3.5 x 28 mm Xience Yudy drug-eluting stent Stent post-dilated with 4.0 noncompliant balloon IC vasodilators administered for spasm Repeat IVUS showed well-expanded, well opposed stent with no apparent edge complications Post procedure SKYE 3 flow, stent well expanded with minimal residual stenosis. SKYE-3 flow and jailed D1. Embolic thrombus in LAD vessel at apex. Dottered with post dilation balloon. Will continue Integrilin. Arterial Closure: TR band Summary: 1. Severe single vessel coronary artery disease -Acute on chronic 100% proximal LAD occlusion 2. Normal intracardiac filling pressure 3. Successful PCI of proximal to mid LAD with single drug-eluting stent (3.5 x 28 mm Xience; postdilated with 4.0 NC). Recommendations: To PCU for continued monitoring Loaded with ticagrelor 180 mg in emergency department With residual thrombus and apical LAD continue Integrilin for 6 hours Continue dual-antiplatelet therapy for at least 1 year Continue statin, and ASCVD risk factor modification Consult cardiac Rehab Hemodynamics Rest Ao:: 123/68/98 Final Ao: 144/70/94 LV: 145/14 Recommendations Recommendations: PCI without planned CABG Specimens Specimens: None Radiation Exposure (mGy) 884 Contrast (mls) 100 Fluids (cc crystalloids) Fluids (cc crystalloids): 80 Drains Drains: None Anesthesia Moderate Procedural Complication(s) None Disposition PCU I attest to the content of the Intraoperative Record and any orders documented therein. Any exceptions are noted below. [facility] Card Cath Procedure Codes Cardiac Catheterization Procedure 1: Cardiovascular Cath Procedures: 06677 Coronaries and LHC (+/-LV) Therapeutic Services & Ancillary Proc Procedure 1: Cardiovascular Tx and Anc Procedures: 41522 IV Ultrasound (Coronary or Graft) Moderate Sedation Procedure 1: Sedation/Anesthesia: 94402 Mod Sedation by the same physician;Init15 Min Child Age 5 & Up Procedure 2: Sedation/Anesthesia: 02069 Mod Sedation by the same physician; Ea [id number] Minutes Stenting Procedure 1: Cardiovascular Stent Procedures: 24948 Perc transluminal revascularization of acute sub/total occl, aMI PG Care Time/CCT Total # of Minutes Spent Total Time Spent with Patient: Total time spent is greater than 50% in coordination of care (as documented) at patient's floor/unit and/or counseling patient:
[2020-02-02] MEDS ORDERED: POTASSIUM CHLORIDE CRTAB 20 MEQ TABCR PO STA (13:45)
[2020-02-02] MEDS: lisinopril 5 MG TAB PO SCH (14:43)
--- NOTE | 2020-02-02 14:49 | XCELERA ---
[id number]
--- NOTE | 2020-02-02 15:52 | Emergency Department Note ---
General (ED) Blank Date of Service February 02, 2020 This patient was seen initially by Jack Merrill. Jack came and got me and showed me his EKG which is very concerning for an LAD lesion. There were as well and T-type waves the patient was having ongoing chest pain about and saw him immediately. His troponin came back at 8. Jack had already called cardiology, Dr. Ortega from the [facility] and he was going to come see the patient after he did finish the procedure he was doing. The patient did receive aspirin we establish 2 large-bore IVs. He received nitroglycerin x3 as well as morphine IV. He did drop his pressure after this and was given fluid boluses and is in started to come off. The [facility] team did arrive and are taken emergently for a suspected LAD lesion.
[2020-02-02] MEDS ORDERED: ALUMINUM/MAGNESIUM SUSP 30 ML UDC PO PRN (16:50)
[2020-02-02] MEDS: PANTOprazole 40 MG TAB PO SCH (19:22)
[2020-02-02] MEDS: METOPROLOL TARTRATE 25 MG TAB PO SCH (19:32)
[2020-02-02 21:08] LABS: Appearance Urine Cloudy (Clear); Bacteria Urine Automated Negative (Negative); Bilirubin Urine Negative (Negative); Blood Urine Negative (Negative); Cast Urine Automated 0 /lpf (0-5); Color Urine Yellow; Epithelial Cell Urine Auto 20-30 /lpf (0-5); Glucose Urine UA Negative (Negative); Ketones Urine Trace (Negative); Leukocyte Esterase Urine Negative (Negative); Nitrite Urine Negative (Negative); Protein Urine Negative (Negative); Specific Gravity Urine > 1.045 (1.000-1.030); Urobilinogen Urine Negative (Negative); pH Urine 7.5 (4.5-7.5)
[2020-02-02] MEDS: TICAGRELOR 90 MG TAB PO SCH (22:34)
[2020-02-03] MEDS: lisinopril 5 MG TAB PO SCH (02:23)
[2020-02-03 05:20] LABS: Basophils # (auto) 0.02 K/uL (0-0.2); Basophils % (auto) 0.2 %; Eosinophils # (auto) 0.05 K/uL (0-0.5); Eosinophils % (auto) 0.5 %; Hematocrit (blood only) 43.1 % (42-52); Hemoglobin 14.4 g/dL (14.0-18.0); Immature Granulocytes # (auto) 0.02 K/uL (0.00-0.02); Immature Granulocytes % (auto) 0.2 %; Lymphocytes # (auto) 1.33 K/uL (1.2-3.4); Lymphocytes % (auto) 12.4 %; Mean Corpuscular Hemoglobin 31.6 pg (25-34); Mean Corpuscular Hgb Conc 33.4 g/dL (32-36); Mean Corpuscular Volume 94.5 fL (80-100); Mean Platelet Volume 11.4 fL (7.4-10.4); Monocytes # (auto) 1.19 K/uL (0.11-0.59); Monocytes % (auto) 11.1 %; Neutrophils # (auto) 8.08 K/uL (1.4-6.5); Neutrophils % (auto) 75.6 %; Platelet Count 185 K/uL (130-400); RDW Coefficient of Variation 13.5 % (11.5-14.5); RDW Standard Deviation 46.5 fL (36.4-46.3); Red Blood Count 4.56 M/uL (4.7-6.1); White Blood Count 10.69 K/uL (4.8-10.8)
[2020-02-03 05:54] LABS: BUN Creatinine Ratio 13.4 (10-20); Calcium 8.8 mg/dl (8.5-10.1); Creatinine Clr Calc Pharmacy 75.5 ml/min; Est GFR (African American) 85.5; Est GFR (Non-African American) 73.8; Potassium 3.9 mmol/L (3.5-5.1)
[2020-02-03 05:55] LABS: Troponin I 15.6 ng/ml (0-0.045)
--- NOTE | 2020-02-03 06:01 | Electrocardiogram Report ---
Test Reason : Blood Pressure : / mmHG Vent. Rate : 055 BPM Atrial Rate : 055 BPM P-R Int : 114 ms QRS Dur : 080 ms QT Int : 472 ms P-R-T Axes : 046 025 142 degrees QTc Int : 451 ms Sinus bradycardia Possible Left atrial enlargement Abnormal ECG When compared with ECG of 07-DEC-2017 19:02, Premature atrial complexes are no longer Present Anterior ST/T wave abnormality is now present QT has lengthened Confirmed by Ganga Chacko ([id number]) on 02/03/2020 6:00:55 AM Referred By: Confirmed By:Ganga Chacko
--- NOTE | 2020-02-03 06:02 | Electrocardiogram Report ---
Test Reason : Blood Pressure : / mmHG Vent. Rate : 059 BPM Atrial Rate : 059 BPM P-R Int : 166 ms QRS Dur : 076 ms QT Int : 458 ms P-R-T Axes : 036 005 074 degrees QTc Int : 453 ms Sinus bradycardia Possible Left atrial enlargement Left ventricular hypertrophy Abnormal ECG When compared with ECG of 02-FEB-2020 09:24, No significant change was found Confirmed by Ganga Chacko ([id number]) on 02/03/2020 6:02:22 AM Referred By: REFERRED SELF Confirmed By:Ganga Chacko
[2020-02-03 06:12] LABS: Estimated Average Glucose 117 mg/dl; Hemoglobin A1C 5.7 % (4.5-5.6)
--- NOTE | 2020-02-03 06:21 | Electrocardiogram Report ---
Test Reason : Blood Pressure : / mmHG Vent. Rate : 053 BPM Atrial Rate : 053 BPM P-R Int : 156 ms QRS Dur : 080 ms QT Int : 468 ms P-R-T Axes : 033 031 064 degrees QTc Int : 439 ms Sinus bradycardia with marked sinus arrhythmia Premature atrial complexes ST elevation, consider anterior injury Abnormal ECG When compared with ECG of 02-FEB-2020 10:46, ST more elevated in Anterior leads Premature atrial complexes are now Present Confirmed by Ganga Chacko ([id number]) on 02/03/2020 6:21:06 AM Referred By: REFERRED SELF Confirmed By:Ganga Chacko
[2020-02-03] MEDS: TICAGRELOR 90 MG TAB PO SCH (08:17)
[2020-02-03] MEDS: METOPROLOL TARTRATE 25 MG TAB PO SCH (08:17)
[2020-02-03] MEDS: PANTOprazole 40 MG TAB PO SCH (08:18)
[2020-02-03] MEDS ORDERED: ATORVASTATIN 40 MG TAB PO SCH (09:00)
[2020-02-03] MEDS ORDERED: ASPIRIN 81 MG ECTAB PO SCH (09:00)
[2020-02-03] MEDS ORDERED: SERTRALINE HCL 50 MG TABLET PO SCH (11:30)
--- NOTE | 2020-02-06 14:30 | Discharge Summary ---
Date of Service February 06, 2020 Admission HPI Per Admitting Provider Mr. Casas is a very pleasant 64-year-old gentleman with history significant for hypertension, dyslipidemia, and recurrent bowel obstruction who presented to the emergency department today (02/02/2020) with chest discomfort and elevated troponins. He has been experiencing intermittent chest discomfort over the past few days. Then yesterday morning, 02/01/2020, chest discomfort intensified and has been persistent since then. It is a substernal chest discomfort that has radiated to his neck and bilateral shoulders. It is associated with shortness of breath. In the ER, he received nitroglycerin x3 with some improvement of his symptoms but chest pain has persisted. Nitropaste was also placed. He became hypotensive with systolic blood pressure as low as the 60s per report. This improved with removal of nitroglycerin paste and IV fluids. He had transient nausea but no vomiting. He was less responsive when significantly hypotensive but otherwise denies syncope, near-syncope, palpitations, edema, or bleeding such as melena, hematochezia, hematuria. He has never been formally diagnosed with diabetes but does have hypertension and dyslipidemia for which he takes lisinopril and atorvastatin, respectively. He underwent cardiac catheterization approximately 15 years ago at [facility] and was told that it was normal. In the ER, he was noted to have minor anterior ST elevation with T-wave inversion, which was new from prior ECG on 12/07/2017. He has remained in sinus bradycardia which is chronic. Specialty Data Cardiology Cardiac catheterization/PCI: 1. Severe single vessel coronary artery disease -Acute on chronic 100% proximal LAD occlusion 2. Normal intracardiac filling pressure 3. Successful PCI of proximal to mid LAD with single drug-eluting stent (3.5 x 28 mm Xience; postdilated with 4.0 NC). Discharge Data Consultations 02/02/20 12:33 Consult Cardiac Rehabilitation Routine Procedures Performed Operation Date: 02/02/20 10:55 Actual Procedures p Cath, Left with Cors and Vent - Jonathan Ortega MD s Drug Eluting Stent SGl Vessel - Jonathan Ortega MD s IVUS Coronary Single Vessel - Jonathan Ortega MD s Cineradiography w/Routine Exam - Jonathan Ortega MD Hospital Course (1) Acute PA: Patient brought urgently to cardiac catheterization lab where he was found to have an acute on chronic mid LAD occlusion. Had successful PCI with single drug-eluting stent placed to proximal to mid LAD. Admitted to telemetry post procedure for observation. Had no significant additional chest pain. Remained hemodynamically and electrically stable. Troponin peaked at 23. Echocardiogram showed LVEF of 55% with apical akinesis, mild LVH. On post procedure day 1 was feeling well. He had no apparent access site complications. Post procedure hemoglobin, renal function stable. Discharged home on DAPT with aspirin, ticagrelor. Follow-up with cardiology in 1 to 2 weeks. Discharge Instructions Home Medications aspirin 81 mg PO QDL 02/02/20 [History Confirmed 02/02/20] sertraline 50 mg PO QDL 02/02/20 [History Confirmed 02/02/20] atorvastatin 80 mg PO DAILY #0 tab 02/03/20 [Rx Confirmed 02/02/20] lisinopril 10 mg PO DAILY #30 tab 02/03/20 [Rx] metoprolol succinate [Toprol XL] 25 mg PO DAILY #30 tab 02/03/20 [Rx] nitroglycerin 0.4 mg SUBLINGUAL Q5M PRN #30 tab 02/03/20 [Rx] pantoprazole 40 mg PO QAM #30 tab 02/03/20 [Rx] ticagrelor [Brilinta] 90 mg PO Q12H #30 tab 02/03/20 [Rx] Coding Level of Care Code 45663 OBS Care - Discharge Diagnoses Acute PA I21.02 Involved coronary artery: LAD coronary artery Myocardial infarction type: unspecified
== END 2020-02-03 08:58 | disposition home or self-care (01) ==
LOC: ED 09:19 → 1E 11:26 → CC 11:26